=== PATIENT | female | born 1960 | race Caucasian/White ===

== ENCOUNTER → 2017-01-01 | Outpatient (CLI) | payer BC ==
--- NOTE | 2017-01-01 09:14 | BD ---
EXAMINATION TYPE: MG DEXA axial skeleton. DATE OF EXAM: 01/01/2017 8:14 AM COMPARISON: NONE CLINICAL HISTORY: Height: 66.2 IN Weight: 114 LBS FRAX RISK QUESTIONS: Alcohol (3 or more units per day): NO Family History (Parent hip fracture): NO Glucocorticoids (More than 3mos): NO (Ex: prednisone, prednisolone, methylprednisolone, dexamethasone, and hydrocortisone). History of Fracture in Adulthood: NO Secondary Osteoporosis: 1. Type 1 Diabetes: NO 2. Hyperthyroidism: NO 3. Menopause before 45: NO 4. Malnutrition: NO 5. Chronic liver disease: NO Rheumatoid Arthritis: NO Current Tobacco Use: YES RISK FACTORS HISTORY OF: Smoke tobacco: YES Active: YES Postmenopausal woman: AGE 49 MEDICATIONS: Additional Medications: SLEEPING PILL, EXAM MEASUREMENTS: Bone mineral densitometry was performed using the [employer] System. Bone mineral density as measured about the Lumbar spine is: ----- L1-L4(G/cm2): 1.066 T Score Values are as follows: ----- L2: -1.1 ----- L3: -0.3 ----- L4: -1.3 ----- L1-L4: -1.0 Bone mineral density BASELINE Bone mineral density about the R hip (g/cm2): 0.824 Bone mineral density about the L hip (g/cm2): 0.914 T Score values are as follows: -----R Neck: -1.5 -----L Neck: -0.9 -----R Intertrochanter: -1.9 -----L Intertrochanter: -2.1 Bone mineral density BASELINE IMPRESSION: Osteopenia (T Score between -2.5 and -1 as noted by T score values There is slightly increased risk of fracture and the patient may be considered for treatment. Re-Screen 1-2 years. NOTE: T-SCORE=SD OF THE YOUNG ADULT MEAN.
--- NOTE | 2017-01-02 13:49 | MM ---
Reason for exam: screening (asymptomatic). Last mammogram was performed 1 year and 7 months ago. History: Patient is postmenopausal. Physical Findings: A clinical breast exam by your physician is recommended on an annual basis and results should be correlated with mammographic findings. MG Screening Mammo w CAD Bilateral CC and MLO view(s) were taken. Prior study comparison: June 10, 2015, bilateral MG screening mammo w CAD. May 08, 2013, bilateral digital screening mammo w/CAD. The breast tissue is heterogeneously dense. This may lower the sensitivity of mammography. There is no discrete abnormality. No significant changes when compared with prior studies. ASSESSMENT: Negative, BI-RAD 1 RECOMMENDATION: Routine screening mammogram of both breasts in 1 year.
== END | disposition home or self-care (01) ==
LOC: RADMAMWWP 08:11
PROVIDERS: ATTEND Family Medicine
DX: Z12.31 Encounter for screening mammogram for malignant neoplasm of breast (principal); Z78.0 Asymptomatic menopausal state; M85.80 Other specified disorders of bone density and structure, unspecified site
CPT/HCPCS: 77080; G0202

== ENCOUNTER → 2017-02-27 | Outpatient (CLI) | payer BC ==
--- NOTE | 2017-02-27 15:06 | US ---
EXAMINATION TYPE: US thyroid st tissue head/neck DATE OF EXAM: 02/27/2017 9:35 AM COMPARISON: 03/22/2016 CLINICAL HISTORY: E04.1 NON TOXIC SINGLE THYROID NODULE. Follow up exam GLAND SIZE: Right Lobe: 4.7 x 1.5 x 2.1 cm Overall Parenchyma: heterogenous Left Lobe: 4.7 x 1.2 x 1.8 cm Overall Parenchyma: heterogeneous Isthmus Thickness: 0.3 cm NODULES RIGHT: # of nodules measured on right: 0 LEFT: # of nodules measured on left: 1 1. 1.8 X 1.4 x 1.3 cm hypoechoic solid nodule at the lower pole with well-defined margins. This nod ule is wider than tall and shows intranodular vascularity. Prior size: 1.7 x 1.3 x 1.5 cm ISTHMUS: # of nodules measured in the isthmus: 0 Bilateral neck scanned, no evidence of lymphadenopathy. IMPRESSION: 1. Stable left lobe thyroid nodule
== END | disposition home or self-care (01) ==
LOC: RADUSWWP 09:19
PROVIDERS: ATTEND Family Medicine
DX: E04.1 Nontoxic single thyroid nodule (principal)
CPT/HCPCS: 76536

== ENCOUNTER 2018-03-14 06:15 | Day surgery (SDC) | payer BC ==
[2018-03-12 10:35] VITALS: BMI 18.2
--- NOTE | 2018-03-14 05:51 | P.GSHP ---
History of Present Illness H&P Date: 03/14/18 CHIEF COMPLAINT: Colon screen HISTORY OF PRESENT ILLNESS: The patient is a 57-year-old female who presents for colon screen. Lower endoscopy was offered for further evaluation and management. PAST MEDICAL HISTORY: Please see list. PAST SURGICAL HISTORY: Please see list. MEDICATIONS: Please see list. ALLERGIES: Please see list. SOCIAL HISTORY: No illicit drug use FAMILY HISTORY: No reports of Crohn disease or ulcerative colitis. REVIEW OF ORGAN SYSTEMS: CONSTITUTIONAL: No reports of fevers or chills. PHYSICAL EXAM: VITAL SIGNS: Stable GENERAL: Well-developed pleasant in no acute distress. HEENT: No scleral icterus. Extraocular movements grossly intact. Moist buccal mucosa. NECK: Supple without lymphadenopathy. CHEST: Unlabored respirations. Equal bilateral excursions. CARDIOVASCULAR: Regular rate and rhythm. Distal 2+ pulses. ABDOMEN: Soft, nontender, nondistended. MUSCULOSKELETAL: No clubbing, cyanosis, or edema. ASSESSMENT: 1. Colon screen. PLAN: 1. Recommend proceeding with a lower endoscopy Past Medical History Past Medical History: COPD Additional Past Medical History / Comment(s): sore throat lately,occas difficulty swallowing,recent cold symptoms,migraines History of Any Multi-Drug Resistant Organisms: None Reported Past Surgical History: Tubal Ligation Past Anesthesia/Blood Transfusion Reactions: No Reported Reaction Smoking Status: Current every day smoker - Past Family History Mother Family Medical History: No Reported History Medications and Allergies Home Medications Medication Instructions Recorded Confirmed Type Cholecalciferol (Vitamin D3) 2,000 unit PO DAILY 03/12/18 03/12/18 History [Vitamin D3] Ibuprofen 800 mg PO TID PRN 03/12/18 03/12/18 History Nicotine 21Mg/24Hr Patch [Habitrol 1 each TRANSDERM DAILY 03/12/18 03/12/18 History 21Mg/24Hr Patch] Zolpidem Tartrate [Ambien] 10 mg PO HS PRN 03/12/18 03/12/18 History Allergies Allergy/AdvReac Type Severity Reaction Status Date / Time No Known Allergies Allergy Verified 03/12/18 10:26
[2018-03-14] MEDS ORDERED: IV FLUID CONTINUATION 1,000 ML IV ONE (06:36)
[2018-03-14 06:46] VITALS: TEMP 98.1
[2018-03-14] MEDS ORDERED: PROPOFOL 10 MG/ML 20 ML VIAL IV ONE (06:59)
[2018-03-14] MEDS ORDERED: LIDOCAINE 1% INJ 10MG/ML (20 ML MDV) ONE (06:59)
[2018-03-14] MEDS ORDERED: LACTATED RINGERS 1,000 ML IV SCH (07:02)
[2018-03-14] MEDS ORDERED: LIDOCAINE 1% 20 ML VIAL (10MG/ML) FOR IV START INTRADERMA PRN (07:02)
--- NOTE | 2018-03-14 07:24 | P.PCN ---
Date of Procedure: 03/14/18 Description of Procedure: PREOPERATIVE DIAGNOSIS: Colonoscopy screening. High-risk familial history POSTOPERATIVE DIAGNOSIS: Colonoscopy screening. High-risk familial history Sigmoid colon polyp Transverse colon polyp OPERATION: Colonoscopy to the ileocecal valve and appendiceal orifice. Colonoscopy with multiple hot snare biopsies. SURGEON: Mally Acevedo MD. ANESTHESIA: MAC. INDICATIONS: The patient is a 57-year-old female who presents for her first colonoscopy screening. Benefits and risks were described and informed consent was obtained. DESCRIPTION OF PROCEDURE: The patient had undergone Gatorade, MiraLAX and Dulcolax prep. Shee had been brought into the operating room and laid in the left lateral decubitus position. After adequate intravenous sedation, the rectum was examined with 2% lidocaine jelly. No external hemorrhoids were encountered. The rectal tone was within normal limits. No lesions were palpated in the rectal vault. An Olympus colonoscope was advanced until the ileocecal valve and appendiceal orifice were clearly viewed. The prep was fair with visualization of the mucosal folds. The scope was removed with visualization of each mucosal fold. No scattered diverticulosis was encountered. Multiple colonic polyps were found and snare polypectomy. No evidence of focal colitis was found. Retroflexion of the scope demonstrated no grade 1 internal hemorrhoids. The colon was desufflated. The patient had tolerated the procedure well. Withdrawal time was over 6 minutes. FINDINGS: No internal hemorrhoids. No external hemorrhoids. No arteriovenous malformations. Removal of 2 polyps from the proximal, mid transverse colon and descending colon : - Snare polypectomy 15 cm from the anal verge, 5 mm tubulovillous adenoma polyp , sigmoid colon - Snare polypectomy 65 cm from the anal verge, 8 mm flat villous adenoma polyp, transverse colon No focal colitis. RECOMMENDATIONS: Recommend repeat colonoscopy 3 year, 2020 Plan - Discharge Summary New Discharge Prescriptions: No Action Zolpidem Tartrate [Ambien] 10 mg PO HS PRN PRN Reason: sleep Cholecalciferol (Vitamin D3) [Vitamin D3] 2,000 unit PO DAILY Ibuprofen 800 mg PO TID PRN PRN Reason: migraines Nicotine 21Mg/24Hr Patch [Habitrol 21Mg/24Hr Patch] 1 each TRANSDERM DAILY Discharge Medication List Cholecalciferol (Vitamin D3) [Vitamin D3] 2,000 unit PO DAILY 03/12/18 [History] Ibuprofen 800 mg PO TID PRN 03/12/18 [History] Nicotine 21Mg/24Hr Patch [Habitrol 21Mg/24Hr Patch] 1 each TRANSDERM DAILY 03/12 [History] Zolpidem Tartrate [Ambien] 10 mg PO HS PRN 03/12/18 [History]
[2018-03-14 07:25] VITALS: RESP 16
[2018-03-14 07:38] VITALS: PULSE 63
[2018-03-14 07:55] VITALS: BP 133/85
== END 2018-03-14 08:07 | disposition home or self-care (01) ==
LOC: ORWHC2ENDO 06:15
PROVIDERS: ATTEND Surgery Plastic and Reconstructive Surgery
DX: Z12.11 Encounter for screening for malignant neoplasm of colon (principal); D12.3 Benign neoplasm of transverse colon; G43.909 Migraine, unspecified, not intractable, without status migrainosus; K63.5 Polyp of colon; J44.9 Chronic obstructive pulmonary disease, unspecified; F17.210 Nicotine dependence, cigarettes, uncomplicated; Z79.899 Other long term (current) drug therapy
CPT/HCPCS: 88305; 45385; J2001; J2704

== ENCOUNTER → 2018-03-20 | Outpatient (CLI) | payer BC ==
--- NOTE | 2018-03-20 13:34 | MM ---
Reason for exam: screening (asymptomatic). Last mammogram was performed 1 year and 3 months ago. History: Patient is postmenopausal. Physical Findings: A clinical breast exam by your physician is recommended on an annual basis and results should be correlated with mammographic findings. MG Screening Mammo w CAD Bilateral CC and MLO view(s) were taken. Prior study comparison: January 01, 2017, bilateral MG screening mammo w CAD. June 10, 2015, bilateral MG screening mammo w CAD. The breast tissue is heterogeneously dense. This may lower the sensitivity of mammography. No suspicious abnormality. No significant changes when compared with prior studies. ASSESSMENT: Negative, BI-RAD 1 RECOMMENDATION: Routine screening mammogram of both breasts in 1 year.
== END | disposition home or self-care (01) ==
LOC: RADMAMWWP 08:15
PROVIDERS: ATTEND Family Medicine
DX: Z12.31 Encounter for screening mammogram for malignant neoplasm of breast (principal)
CPT/HCPCS: 77067

== ENCOUNTER → 2018-03-26 | Outpatient (CLI) | payer BC ==
--- NOTE | 2018-03-26 08:48 | US ---
EXAMINATION TYPE: US thyroid st tissue head/neck DATE OF EXAM: 03/26/2018 COMPARISON: 02/27/2017 CLINICAL HISTORY: E05.90 Thyrotoxicosis, unspec w/o thyrotoxic. GLAND SIZE: Right Lobe: 4.7 x 1.8 x 2.1 cm Overall Parenchyma: heterogenous Left Lobe: 4.7 x 1.8 x 1.6 cm Overall Parenchyma: heterogeneous Isthmus Thickness: 0.4 cm NODULES RIGHT: # of nodules measured on right: 0 LEFT: # of nodules measured on left: 1 1. 1.7 X 1.0 x 1.6 cm echogenic solid nodule at the lower pole with well-defined margins; periphera l anechoic halo. This nodule is taller than wide and shows intranodular vascularity. Prior size: 1.8 x 1.3 x 1.4 cm ISTHMUS: # of nodules measured in the isthmus: 0 Bilateral neck scanned, no evidence of lymphadenopathy. IMPRESSION: Nonspecific left-sided thyroid nodule as discussed above. The need to biopsy should be made on a clin ical basis.
== END | disposition home or self-care (01) ==
LOC: RADUSWWP 08:12
PROVIDERS: ATTEND Family Medicine
DX: E04.1 Nontoxic single thyroid nodule (principal); E05.90 Thyrotoxicosis, unspecified without thyrotoxic crisis or storm
CPT/HCPCS: 76536

== ENCOUNTER → 2018-04-30 | Outpatient (CLI) | payer BC ==
[2018-04-30 11:37] LABS: HCT 39.4 % (34.0-46.0); MCH 29.2 pg (25.0-35.0); MCV 88.3 fL (80.0-100.0); Platelet Count 229 k/uL (150-450); RBC 4.46 m/uL (3.80-5.40); RDW 12.8 % (11.5-15.5); WBC 6.9 k/uL (3.8-10.6)
[2018-04-30 11:43] LABS: ALT 26 U/L (9-52); AST 23 U/L (14-36); Albumin 3.9 g/dL (3.5-5.0); Alkaline Phosphatase 80 U/L (38-126); Anion Gap 10 mmol/L; Blood Urea Nitrogen 12 mg/dL (7-17); Calcium 9.7 mg/dL (8.4-10.2); Carbon Dioxide 29 mmol/L (22-30); Chloride 103 mmol/L (98-107); Glucose 96 mg/dL (74-99); Sodium 142 mmol/L (137-145); Total Bilirubin 0.4 mg/dL (0.2-1.3); Total Protein 6.3 g/dL (6.3-8.2)
[2018-04-30 12:00] LABS: T4, Free (Free Thyroxine) 1.04 ng/dL (0.78-2.19)
== END | disposition home or self-care (01) ==
LOC: LABWHC1 10:37
PROVIDERS: ATTEND Internal Medicine Endocrinology, Diabetes & Metabolism
DX: E04.1 Nontoxic single thyroid nodule (principal); R94.6 Abnormal results of thyroid function studies
CPT/HCPCS: 36415; 80053; 84439; 84443; 84445; 84480; 85027

== ENCOUNTER → 2018-05-16 | Outpatient (CLI) | payer BC ==
--- NOTE | 2018-05-16 10:06 | US ---
EXAMINATION TYPE: US thyroid st tissue head/neck DATE OF EXAM: 05/16/2018 COMPARISON: Exams dating back to 03/22/2016 CLINICAL HISTORY: E04.1 Nontoxic single thyroid nodule. follow up nodules GLAND SIZE: Right Lobe: 4.6 x 2.0 x 1.7 cm Overall Parenchyma: heterogenous Left Lobe: 4.2 x 1.7 x 1.8 cm Overall Parenchyma: heterogeneous Isthmus Thickness: 0.3 cm NODULES RIGHT: # of nodules measured on right: 1 Multiple hypoechoic lesions seen. Largest measured. 1. 0.7 X 0.7 x 0.6 cm hypoechoic lesion at the mid posterior pole. This nodule is wider than tall and shows intranodular vascularity. Prior size: No prior LEFT: # of nodules measured on left: 1 1. 1.6 X 1.2 x 1.1 cm hypoechoic solid nodule at the lower pole with well-defined margins. This no dule is taller than wide and shows intranodular vascularity. Prior size: 1.7 x 1.0 x 1.6 cm on the exam of 03/26/2018 and 1.7 x 1.3 x 1.5 on the exam of 016. ISTHMUS: # of nodules measured in the isthmus: 0 Bilateral neck scanned, no evidence of lymphadenopathy. IMPRESSION: No interval enlargement of the left thyroid nodule in comparison to exams dating back to 03/22/2016 al though continued surveillance is recommended. New subcentimeter right thyroid nodules also seen.
== END | disposition home or self-care (01) ==
LOC: RADUSWWP 08:50
PROVIDERS: ATTEND Internal Medicine Endocrinology, Diabetes & Metabolism
DX: E04.2 Nontoxic multinodular goiter (principal)
CPT/HCPCS: 76536

== ENCOUNTER 2018-06-18 09:44 | Day surgery (SDC) | payer BC ==
[2018-06-16 13:58] VITALS: BMI 18.8
--- NOTE | 2018-06-18 09:33 | P.GSHP ---
History of Present Illness H&P Date: 06/18/18 CHIEF COMPLAINT: GERD HISTORY OF PRESENT ILLNESS: The patient is a 58-year-old female who presents reports gastroesophageal reflux disease. Upper endoscopy was offered for further evaluation and management. PAST MEDICAL HISTORY: Please see list. PAST SURGICAL HISTORY: Please see list. MEDICATIONS: Please see list. ALLERGIES: Please see list. SOCIAL HISTORY: No illicit drug use FAMILY HISTORY: No reports of Crohn disease or ulcerative colitis. REVIEW OF ORGAN SYSTEMS: CONSTITUTIONAL: No reports of fevers or chills. GI: Denies any blood in stools or constipation. PHYSICAL EXAM: VITAL SIGNS: Stable GENERAL: Well-developed and pleasant in no acute distress. HEENT: No scleral icterus. Extraocular movements grossly intact. Moist buccal mucosa. NECK: Supple without lymphadenopathy. CHEST: Unlabored respirations. Equal bilateral excursions. CARDIOVASCULAR: Regular rate and rhythm. Distal 2+ pulses. ABDOMEN: Soft, nondistended. MUSCULOSKELETAL: No clubbing, cyanosis, or edema. ASSESSMENT: 1. Gastroesophageal reflux disease PLAN: 1. Recommend proceeding with an upper endoscopy Past Medical History Past Medical History: COPD Additional Past Medical History / Comment(s): diff swallowing, History of Any Multi-Drug Resistant Organisms: None Reported Past Surgical History: Tubal Ligation Additional Past Surgical History / Comment(s): colonsocopy Past Anesthesia/Blood Transfusion Reactions: No Reported Reaction Smoking Status: Current every day smoker - Past Family History Mother Family Medical History: No Reported History Sister(s) Family Medical History: Cancer Medications and Allergies Home Medications Medication Instructions Recorded Confirmed Type Ibuprofen 800 mg PO TID PRN 03/12/18 06/16/18 History Zolpidem Tartrate [Ambien] 10 mg PO 1200 PRN 03/12/18 06/16/18 History Fluticasone/Salmeterol [Advair 1 inhalation PO DAILY 06/16/18 06/16/18 History 500-50 Diskus] Methimazole [Tapazole] 2.5 mg PO 1200 06/16/18 06/16/18 History Allergies Allergy/AdvReac Type Severity Reaction Status Date / Time No Known Allergies Allergy Verified 06/16/18 13:48
[~2018-06-18 09:44] MED LIST: LACTATED RINGERS 1,000 ML IV SCH; LIDOCAINE 1% 20 ML VIAL (10MG/ML) FOR IV START INTRADERMA PRN
[2018-06-18 10:21] VITALS: RESP 16; TEMP 98.5
[2018-06-18] MEDS ORDERED: LIDOCAINE 1% INJ 10MG/ML (20 ML MDV) ONE (11:35)
[2018-06-18] MEDS ORDERED: PROPOFOL 10 MG/ML 20 ML VIAL IV ONE (11:35)
[2018-06-18] MEDS ORDERED: IV FLUID CONTINUATION 1,000 ML IV ONE (11:47)
--- NOTE | 2018-06-18 11:51 | P.PCN ---
Date of Procedure: 06/18/18 Description of Procedure: PREOPERATIVE DIAGNOSIS: Gastroesophageal reflux disease. Dysphagia POSTOPERATIVE DIAGNOSIS: Gastroesophageal reflux disease. Dysphagia Diaphragmatic hiatal hernia without obstruction. OPERATION: Esophagogastroduodenoscopy with biopsies along antrum. SURGEON: Mally Acevedo MD ANESTHESIA: MAC. INDICATIONS: The patient is a 58-year-old female who presents with a history of reflux disease. Benefits and risks of the procedure were described. Informed consent was obtained. DESCRIPTION: The patient was brought into the endoscopy suite and laid in the left lateral decubitus position. An Olympus gastroscope was passed along the posterior oropharynx down to the distal esophagus where the squamocolumnar junction was encountered at 39 cm from the incisors. The stomach was entered and no bile reflux was found. Additional findings are listed below. Biopsies with cold forceps were obtained of the antrum. The first through third portion of the duodenum was examined and unremarkable. Retroflexion of the scope confirmed Hill grade 2 lower esophageal valve. The squamocolumnar junction demonstrated early LA grade A erosive esophagitis. The stomach was desufflated. The patient tolerated the procedure well. FINDINGS: Squamocolumnar junction 39 cm from the incisors. Diaphragmatic hiatus at 40 cm. Hiatal hernia 1 cm. Hill grade 2 lower esophageal valve. LA grade A erosive esophagitis. No active duodenitis. Tertiary contractions of the esophagus Hypertensive lower esophageal sphincter RECOMMENDATIONS: Upper endoscopy as needed. Recommend esophageal manometry Plan - Discharge Summary New Discharge Prescriptions: No Action Zolpidem Tartrate [Ambien] 10 mg PO 1200 PRN PRN Reason: sleep Ibuprofen 800 mg PO TID PRN PRN Reason: Pain Methimazole [Tapazole] 2.5 mg PO 1200 Fluticasone/Salmeterol [Advair 500-50 Diskus] 1 inhalation PO DAILY Discharge Medication List Ibuprofen 800 mg PO TID PRN 03/12/18 [History] Zolpidem Tartrate [Ambien] 10 mg PO 1200 PRN 03/12/18 [History] Fluticasone/Salmeterol [Advair 500-50 Diskus] 1 inhalation PO DAILY 06/16/18 [ History] Methimazole [Tapazole] 2.5 mg PO 1200 06/16/18 [History]
[2018-06-18 12:03] VITALS: BP 143/63; PULSE 56
== END 2018-06-18 12:38 | disposition home or self-care (01) ==
LOC: ORWHC2ENDO 09:44
PROVIDERS: ATTEND Surgery Plastic and Reconstructive Surgery
DX: K31.9 Disease of stomach and duodenum, unspecified (principal); K21.0 Gastro-esophageal reflux disease with esophagitis; K44.9 Diaphragmatic hernia without obstruction or gangrene; K22.8 Other specified diseases of esophagus; J44.9 Chronic obstructive pulmonary disease, unspecified; F17.200 Nicotine dependence, unspecified, uncomplicated; Z79.51 Long term (current) use of inhaled steroids; Z79.899 Other long term (current) drug therapy; Z98.51 Tubal ligation status
CPT/HCPCS: 88305; 43239; J2001; J2704

== ENCOUNTER → 2020-06-13 | Outpatient (CLI) | payer BC, OTHER ==
--- NOTE | 2020-06-13 11:57 | BD ---
EXAMINATION TYPE: Axial Bone Density DATE OF EXAM: 06/13/2020 COMPARISON: DEXA bone scan 2017 CLINICAL HISTORY: Postmenopausal female Height: 67 Weight: 134.6 FRAX RISK QUESTIONS: Alcohol (3 or more units per day): no Family History (Parent hip fracture): no Glucocorticoids (More than 3mos): no (Ex: prednisone, prednisolone, methylprednisolone, dexamethasone, and hydrocortisone). History of Fracture in Adulthood: yes Secondary Osteoporosis: 1. Type 1 Diabetes: no 2. Hyperthyroidism: no 3. Menopause before 45: no 4. Malnutrition: no 5. Chronic liver disease: no Rheumatoid Arthritis: no Current Tobacco Use: yes RISK FACTORS HISTORY OF: Family History of Osteoporosis: no Active: no Diet low in dairy products/other sources of calcium: yes Postmenopausal woman: 50 years old MEDICATIONS: Thyroid Medications: thyroid How Lon year Additional History: EXAM MEASUREMENTS: Bone mineral densitometry was performed using the [employer] System. Bone mineral density as measured about the Lumbar spine is: ----- L1-L4(G/cm2): 1.049 T Score Values are as follows: ----- L2: -1.4 ----- L3: -05 ----- L4: -1.8 ----- L1-L4: -1.1 Bone mineral density has: decreased -3.5 % since study of: 12.30.2016 Bone mineral density about the R hip (g/cm2): 0.830 Bone mineral density about the L hip (g/cm2): 0.860 T Score values are as follows: -----R Neck: -1.5 -----L Neck: -1.3 -----R Total: -2.0 -----L Total: -1.9 Bone mineral density has: decreased -3.2 % since study of: 12.30.2016 IMPRESSION: Osteopenia (T Score between -2.5 and -1) remains present. There remains slightly increased risk of fracture and the patient may be considered for treatment. Re-Screen 2-5 years. NOTE: T-SCORE=SD OF THE YOUNG ADULT MEAN.
--- NOTE | 2020-06-13 14:36 | MM ---
Reason for exam: screening (asymptomatic). Last mammogram was performed 2 years and 3 months ago. History: Patient is postmenopausal. Physical Findings: A clinical breast exam by your physician is recommended on an annual basis and results should be correlated with mammographic findings. MG Screening Mammo w CAD Bilateral CC and MLO view(s) were taken. Prior study comparison: March 20, 2018, bilateral MG screening mammo w CAD. January 01, 2017, bilateral MG screening mammo w CAD. The breast tissue is heterogeneously dense. This may lower the sensitivity of mammography. Finding: There is a 5 mm circumscribed round mass in the middle position of the right breast. Asymmetric breast tissue in the left breast is stable. ASSESSMENT: Incomplete: need additional imaging evaluation, BI-RAD 0 RECOMMENDATION: Special view mammogram of the right breast. If lesion persists on supplemental views, image directed ultrasound is recommended. [facility] will attempt to contact patient to return for supplemental views and ultrasound if indicated.
== END | disposition home or self-care (01) ==
LOC: RADMAMWWP 08:18
PROVIDERS: ATTEND Family Medicine
DX: Z12.31 Encounter for screening mammogram for malignant neoplasm of breast (principal); M85.80 Other specified disorders of bone density and structure, unspecified site; Z78.0 Asymptomatic menopausal state
CPT/HCPCS: 77067; 77080

== ENCOUNTER → 2020-06-21 | Outpatient (CLI) | payer BC, OTHER ==
--- NOTE | 2020-06-22 08:00 | MM ---
Reason for exam: additional evaluation requested from abnormal screening. Last mammogram was performed less than 1 month ago. History: Patient is postmenopausal. Physical Findings: Nurse did not find any significant physical abnormalities on exam. MG Work Up Mamm w CAD RT Spot compression CC, spot compression MLO, and LM view(s) were taken of the right breast. Prior study comparison: June 13, 2020, bilateral MG screening mammo w CAD. March 20, 2018, bilateral MG screening mammo w CAD. The breast tissue is heterogeneously dense. This may lower the sensitivity of mammography. Finding: There is a 5 mm obscured round mass located 5 cm from the nipple in the lower outer quadrant, middle position of the right breast does not go completely away on additional images. These results were verbally communicated with the patient and result sheet given to the patient on 06/21/20. ASSESSMENT: Incomplete: need additional imaging evaluation, BI-RAD 0 RECOMMENDATION: Ultrasound of the right breast.
--- NOTE | 2020-06-22 08:02 | USB ---
Reason for exam: additional evaluation requested from abnormal screening. History: Patient is postmenopausal. US Breast Workup Limited RT Technologist: Cheyenne Solorio Right limited breast ultrasound including focal area of concern, retroareolar and axilla demonstrates a 0.6 x 0.7 x 0.4cm oval, cystic cluster at 7 o'clock, increased through transmission, favor septated debris filled cyst. These results were verbally communicated with the patient and result sheet given to the patient on 06/21/20. ASSESSMENT: Probably benign, BI-RAD 3 RECOMMENDATION: Follow-up diagnostic mammogram and ultrasound of the right breast in 6 months.
== END | disposition home or self-care (01) ==
LOC: RADMAMWWP 14:46
PROVIDERS: ATTEND Family Medicine
DX: R92.8 Other abnormal and inconclusive findings on diagnostic imaging of breast (principal)
CPT/HCPCS: 77065

== ENCOUNTER → 2020-12-08 | Outpatient (CLI) | payer OTHER ==
[2020-12-08 19:12] LABS: Basophils # (A) 0.02 X 10*3/uL (0.00-0.10); Basophils % (A) 0.3 %; Eosinophils # (A) 0.15 X 10*3/uL (0.04-0.35); Eosinophils % (A) 2.4 %; HCT 43.2 % (37.2-46.3); HGB 13.9 g/dL (12.0-15.0); Lymphocytes # (A) 1.71 X 10*3/uL (0.90-5.00); Lymphocytes % (A) 27.3 %; MCH 29.4 pg (27.0-32.0); MCHC 32.2 g/dL (32.0-37.0); MCV 91.3 fL (80.0-97.0); Mean Platelet Volume 10.5 fL (9.5-12.2); Monocytes # (A) 0.75 X 10*3/uL (0.20-1.00); Neutrophils # (A) 3.62 X 10*3/uL (1.80-7.70); Neutrophils % (A) 57.8 %; Platelet Count 253 X 10*3/uL (140-440); RBC 4.73 X 10*6/uL (4.10-5.20); RDW 12.1 % (11.5-14.5); WBC 6.26 X 10*3/uL (4.50-10.00)
[2020-12-08 22:58] LABS: African American GFR (CKD) 113.2 (60.0-200.0); Albumin 4.5 g/dL (3.80-4.90); Albumin/Globulin Ratio 2.37 (1.60-3.17); Calcium 9.2 mg/dL (8.7-10.3); Chol/HDL Ratio 3.18; Globulin 1.9 g/dL (1.6-3.3); LDL Cholesterol,Calculated 127.6 mg/dL (0.0-131.0); Non-African American GFR(CKD) 97.7 (60.0-200.0); Potassium 4.8 mmol/L (3.5-5.5); Total Bilirubin 0.5 mg/dL (0.3-1.2); Total Protein 6.4 g/dL (6.2-8.2); VLDL Calculation 16.4 mg/dL (5.00-40.00)
== END | disposition home or self-care (01) ==
LOC: LABWHC1 12:21
PROVIDERS: ATTEND Family Medicine
DX: E78.5 Hyperlipidemia, unspecified (principal); E05.90 Thyrotoxicosis, unspecified without thyrotoxic crisis or storm
CPT/HCPCS: 36415; 80053; 80061; 84443; 84481; 85025

== ENCOUNTER → 2020-12-19 | Outpatient (CLI) | payer OTHER ==
--- NOTE | 2020-12-20 14:18 | MM ---
Reason for exam: follow-up at short interval from prior study. Last mammogram was performed 6 months ago. History: Patient is postmenopausal. Physical Findings: Nurse did not find any significant physical abnormalities on exam. MG Diagnostic Mammo RT w CAD CC and MLO view(s) were taken of the right breast. Prior study comparison: June 13, 2020, bilateral MG screening mammo w CAD. March 20, 2018, bilateral MG screening mammo w CAD. The breast tissue is heterogeneously dense. This may lower the sensitivity of mammography. 6mm nodule right breast 8 o'clock unchanged for 6 months. Continued follow up recommended. These results were verbally communicated with the patient and result sheet given to the patient on 12/19/20. ASSESSMENT: Probably benign, BI-RAD 3 RECOMMENDATION: Follow-up diagnostic mammogram of both breasts in 6 months. Back on schedule for June 2021.
== END | disposition home or self-care (01) ==
LOC: RADMAMWWP 10:12
PROVIDERS: ATTEND Family Medicine
DX: N60.01 Solitary cyst of right breast (principal)
CPT/HCPCS: 77065

== ENCOUNTER → 2021-01-04 | Outpatient (CLI) | payer OTHER ==
--- NOTE | 2021-01-04 16:15 | XR ---
Left shoulder HISTORY: Pain for 1 month 3 views the left shoulder, no comparisons bone mineralization, joint spaces are maintained. Acromion is downsloping. Left lung apex as visualiz ed is normal. In one of the 3 views, there is questionable superior displacement of the distal clavic le in relation to the acromion. IMPRESSION: Correlate for acromioclavicular separation.
== END ==
LOC: RADXRMAIN 13:31
PROVIDERS: ATTEND Family Medicine
DX: M25.512 Pain in left shoulder (principal)

== ENCOUNTER → 2021-04-06 | Outpatient (CLI) | payer OTHER ==
--- NOTE | 2021-04-06 12:56 | XR ---
EXAMINATION TYPE: XR chest 2V DATE OF EXAM: 04/06/2021 COMPARISON: NONE TECHNIQUE: PA and lateral views submitted. HISTORY: Cough FINDINGS: The lungs are clear and there is no pneumothorax, pleural effusion, or focal pneumonia. Hyperinflati on suggests COPD. Biapical pleural thickening. Heart size normal. No overt failure. There is mild int erlobular septal thickening correlate for mild chronic interstitial lung disease. Hypertrophic and de generative change of the spine. IMPRESSION: 1. COPD. Correlate for mild chronic interstitial lung disease.
== END | disposition home or self-care (01) ==
LOC: RADXRMAIN 12:29
PROVIDERS: ATTEND Nurse Practitioner
DX: J44.9 Chronic obstructive pulmonary disease, unspecified (principal)
CPT/HCPCS: 71046

== ENCOUNTER → 2021-06-26 | Outpatient (CLI) | payer OTHER ==
--- NOTE | 2021-06-26 11:04 | MM ---
Reason for exam: follow-up at short interval from prior study. Last mammogram was performed 6 months ago. History: Patient is postmenopausal. Physical Findings: Nurse did not find any significant physical abnormalities on exam. MG Diagnostic Mammo w CAD SUMA Bilateral CC and MLO view(s) were taken. Prior study comparison: December 19, 2020, right breast MG diagnostic mammo RT w CAD. June 21, 2020, right breast MG work up mamm w CAD RT. The breast tissue is heterogeneously dense. This may lower the sensitivity of mammography. Stable benign calcifications. 6mm nodule right 8 o'clock, stable, ultrasound is recommended. These results were verbally communicated with the patient and result sheet given to the patient on 06/26/21. ASSESSMENT: Incomplete: need additional imaging evaluation, BI-RAD 0 RECOMMENDATION: Ultrasound of the right breast.
--- NOTE | 2021-06-26 11:05 | USB ---
Reason for exam: additional evaluation requested from abnormal screening. History: Patient is postmenopausal. US Breast Limited RT Technologist: Cheyenne Solorio Right limited breast ultrasound including focal area of concern, retroareolar and axilla demonstrates a 0.7 x 0.8 x 0.4cm cystic, complex lesion at 7 o'clock. These results were verbally communicated with the patient and result sheet given to the patient on 06/26/21. ASSESSMENT: Probably benign, BI-RAD 3 RECOMMENDATION: Ultrasound of the right breast in 6 months.
== END | disposition home or self-care (01) ==
LOC: RADMAMWWP 09:47
PROVIDERS: ATTEND Family Medicine
DX: R92.8 Other abnormal and inconclusive findings on diagnostic imaging of breast (principal)
CPT/HCPCS: 77066

== ENCOUNTER → 2021-07-13 | Outpatient (CLI) | payer OTHER ==
--- NOTE | 2021-07-13 15:42 | XR ---
EXAMINATION TYPE: XR KUB DATE OF EXAM: 07/13/2021 COMPARISON: NONE HISTORY: Pain TECHNIQUE: One view abdominal series FINDINGS: The osseous structures are intact. The bowel gas pattern is nonspecific. Is a 3 mm left hemipelvic c alcification. Arthropathy of the hips.. IMPRESSION: 1. 3 mm left hemipelvic calcifications suspicious for distal ureteral calculus.
== END | disposition home or self-care (01) ==
LOC: RADXRMAIN 15:02
PROVIDERS: ATTEND Nurse Practitioner
DX: R93.5 Abnormal findings on diagnostic imaging of other abdominal regions, including retroperitoneum (principal)
CPT/HCPCS: 74018

== ENCOUNTER → 2021-07-18 | Outpatient (CLI) | payer OTHER ==
--- NOTE | 2021-07-18 18:11 | US ---
EXAMINATION TYPE: US thyroid st tissue head/neck DATE OF EXAM: 07/18/2021 COMPARISON: 05/16/2018 CLINICAL HISTORY: 61-year-old female E04.1 Nontoxic single thyroid nodule. Patient has hard time swal lowing GLAND SIZE: Right Lobe: 5.4x3.2x2.9 cm Overall Parenchyma: heterogeneous Left Lobe: 5.1x2.5x2.3 cm Overall Parenchyma: heterogeneous Isthmus Thickness: 0.8 cm There is diffuse glandular heterogeneity and hyperemia. NODULES- Multiple subcentimeter nodules, the largest are measured RIGHT: # of nodules measured on right: 2 1. 1.2 X 0.9 x 1.0 cm, mid mid, solid or almost completely solid, TR3 hyperechoic nodule, which is wider than tall, with smooth margins, without echogenic foci. Prior size: 0.7 x 0.7 x 0.6 cm Previously mostly cystic 2. 1.2 X 1.0 x 1.2 cm, mid lateral, solid or almost completely solid, hyperechoic TR3 nodule, which is wider than tall, with smooth margins, without echogenic foci. Prior size: Not previously measured LEFT: # of nodules measured on left: 3 1. 1.2 X 0.7 x 1.0 cm, mid posterior, solid or almost completely solid, TR 3 hyperechoic nodule, wh ich is wider than tall, with smooth margins, without echogenic foci. Prior size: Not previously measured, ? Parathyroid 2. 0.6 X 0.6 x 0.6 cm, mid mid, solid or almost completely solid, TR 3 hyperechoic nodule, which i s wider than tall, with smooth margins, without echogenic foci. Prior size: Not previously measured 3. 1.4 X 1.1 x 1.1 cm, lower medial, solid or almost completely solid, TR 4 hypoechoic nodule, whic h is wider than tall, with smooth margins, without echogenic foci. Calcified rim Prior size: 1.6 x 1.2 x 1.1 cm ISTHMUS: # of nodules measured in the isthmus: 1 1. 0.7 X 0.4 x 0.7 cm solid or almost completely solid, TR4 hypoechoic nodule, which is wider than tall, with smooth margins, without echogenic foci. Prior size: Not previously measured Bilateral neck scanned. Thickened, lymph nodes are seen laterally in both sides of the neck. Right = 2.0x2.5x1.1cm Left = 2.0x1.2x0.9cm IMPRESSION: 1. Findings suggest multinodular goiter. Numerous subcentimeter nodules are present. The largest are reported above and are TR3 or TR4 nodules. 2. One of the solid TR 3 nodules in the right mid pole currently measures 12 mm versus 7 mm, previous ly, and can continue to be followed. 3. A 1.2 cm TR 3 nodule posteriorly on the left could represent a parathyroid gland. 4. Multiple additional TR4 nodules should continue to be followed. 5. A couple thickened and mildly enlarged lymph nodes on either side of the neck. Clinical follow-up is recommended. They can also be reassessed at follow-up ultrasound. If any enlarging lymph nodes are detected, consider contrast-enhanced CT of the neck.
== END | disposition home or self-care (01) ==
LOC: RADUSWWP 10:55
PROVIDERS: ATTEND Family Medicine
DX: E04.2 Nontoxic multinodular goiter (principal)
CPT/HCPCS: 76536

== ENCOUNTER → 2022-03-12 | Outpatient (CLI) | payer OTHER ==
--- NOTE | 2022-03-12 10:49 | USB ---
Reason for exam: clinical finding. History: Patient is postmenopausal. Indicated problem(s): pain in both breasts. Physical Findings: A clinical breast exam by your physician is recommended on an annual basis and results should be correlated with mammographic findings. US Breast BILAT Right complete breast ultrasound includes all four quadrants, the retroareolar region and axilla. Finding demonstrates a 0.8 x 0.5 x 0.8cm oval, cystic lesion, complex cyst at 7 o'clock, 4cm from nipple, stable from 06/26/21. Left complete breast ultrasound includes all four quadrants, the retroareolar region and axilla. Finding demonstrates no cystic or solid lesion seen. Results were given to the patient verbally at the time of the exam. ASSESSMENT: Benign, BI-RAD 2 RECOMMENDATION: Routine screening mammogram of both breasts in 3 months. Back on schedule for June 2022. Manage patient on a clinical basis.
== END | disposition home or self-care (01) ==
LOC: RADUSWWP 10:18
PROVIDERS: ATTEND Family Medicine
DX: N60.01 Solitary cyst of right breast (principal); Z78.0 Asymptomatic menopausal state

== ENCOUNTER → 2022-05-24 | Outpatient (CLI) | payer OTHER ==
[2022-05-24 23:45] LABS: Basophils # (A) 0.02 X 10*3/uL (0.00-0.10); Basophils % (A) 0.3 %; Eosinophils # (A) 0.52 X 10*3/uL (0.04-0.35); Eosinophils % (A) 7.6 %; HCT 41.9 % (37.2-46.3); HGB 13.5 g/dL (12.0-15.0); Immature Grans, Automated 0.3 %; Lymphocytes # (A) 2.03 X 10*3/uL (0.90-5.00); Lymphocytes % (A) 29.9 %; MCH 29.3 pg (27.0-32.0); MCHC 32.2 g/dL (32.0-37.0); MCV 90.9 fL (80.0-97.0); Mean Platelet Volume 10.2 fL (9.5-12.2); Monocytes # (A) 0.69 X 10*3/uL (0.20-1.00); Monocytes % (A) 10.1 %; NRBC Per 100 WBC 0 /100 WBCS (0.0-0.0); Neutrophils # (A) 3.52 X 10*3/uL (1.80-7.70); Neutrophils % (A) 51.8 %; Platelet Count 246 X 10*3/uL (140-440); RBC 4.61 X 10*6/uL (4.10-5.20); RDW 12.1 % (11.5-14.5)
[2022-05-25 00:43] LABS: ALT 16 U/L (8-44); AST 18 U/L (13-35); African American GFR (CKD) 107.7 (60.0-200.0); Albumin 4.1 g/dL (3.8-4.9); Albumin/Globulin Ratio 1.92 (1.60-3.17); Alkaline Phosphatase 128 U/L (41-126); BUN/Creat Ratio 13.28 Ratio (12.00-20.00); Blood Urea Nitrogen 9.1 mg/dL (9.0-27.0); Calcium 9.4 mg/dL (8.7-10.3); Carbon Dioxide 28.1 mmol/L (20.0-27.5); Chloride 106 mmol/L (96-109); Globulin 2.1 g/dL (1.6-3.3); Glucose 86 mg/dL (70-110); LDL Cholesterol,Calculated 61.6 mg/dL (0.0-131.0); Sodium 142 mmol/L (135-145); Total Protein 6.2 g/dL (6.2-8.2)
--- NOTE | 2022-05-25 07:24 | US ---
EXAMINATION TYPE: US thyroid st tissue head/neck DATE OF EXAM: 05/24/2022 COMPARISON: CLINICAL HISTORY: E04.9 GOITER. No hx biopsy per patient. On thyroid meds. GLAND SIZE: Right Lobe: 5.9 x 2.8 x 2.6 cm Overall Parenchyma: heterogenous Left Lobe: 5.4 x 2.3 x 2.5 cm Overall Parenchyma: heterogeneous Isthmus Thickness: 0.9 cm NODULES- Multiple nodules visualized bilaterally RIGHT: # of nodules measured on right: 2 1. 1.2 x 1.3 x 1.0 cm, mid mid, solid or almost completely solid, hyperechoic nodule, which is wider than tall, with smooth margins, without echogenic foci. Prior size: 1.2 x 1.0 x 0.9 cm 2. 1.3 X 1.1 x 0.9 cm, mid lateral, solid or almost completely solid, hyperechoic nodule, which is wider than tall, with smooth margins, without echogenic foci. Prior size: 1.2 x 1.2 x 1.0 cm LEFT: # of nodules measured on left: 3 1. 1.1 X 1.0 x 0.8 cm, mid mid posterior, solid or almost completely solid, hyperechoic nodule, whi ch is wider than tall, with smooth margins, without echogenic foci. Prior size: 1.2 x 1.0 x 0.7 cm 2. 0.6 X 0.6 x 0.5 cm, mid mid, solid or almost completely solid, hyperechoic nodule, which is wid er than tall, with smooth margins, without echogenic foci. Prior size: 0.6 x 0.6 x 0.6 cm 3. 1.2 X 1.0 x 1.1 cm, lower mid, solid or almost completely solid, hyperechoic nodule, which is ta ller than wide, with smooth margins, with echogenic foci. Prior size: 1.4 x 1.1 x 1.1 cm ISTHMUS: # of nodules measured in the isthmus: 1 1. 0.7 X 0.8 x 0.6 cm solid or almost completely solid, hypoechoic nodule, which is wider than tall , with smooth margins, without echogenic foci. Prior size: 0.7 x 0.7 x 0.4 cm Bilateral neck scanned, no evidence of lymphadenopathy. Bilateral thyroid lobes appear hypervascular. IMPRESSION: 1. Glandular heterogeneity and enlargement noted. 2. Nonspecific thyroid nodules as outlined above.
== END | disposition home or self-care (01) ==
LOC: RADUSWWP 15:13
PROVIDERS: ATTEND Family Medicine
DX: E04.2 Nontoxic multinodular goiter (principal)
CPT/HCPCS: 76536; 80053; 80061; 83036; 84439; 84443; 84481; 85025

== ENCOUNTER 2022-06-20 10:38 | Day surgery (SDC) | payer OTHER ==
--- NOTE | 2022-06-20 09:57 | P.GSHP ---
History of Present Illness H&P Date: 06/20/22 CHIEF COMPLAINT: Colon screen HISTORY OF PRESENT ILLNESS: The patient is a 62-year-old female who presents for colon screen. Lower endoscopy was offered for further evaluation and management. PAST MEDICAL HISTORY: Please see list. PAST SURGICAL HISTORY: Please see list. MEDICATIONS: Please see list. ALLERGIES: Please see list. SOCIAL HISTORY: No illicit drug use FAMILY HISTORY: No reports of Crohn disease or ulcerative colitis. REVIEW OF ORGAN SYSTEMS: CONSTITUTIONAL: No reports of fevers or chills. PHYSICAL EXAM: VITAL SIGNS: Stable GENERAL: Well-developed pleasant in no acute distress. HEENT: No scleral icterus. Extraocular movements grossly intact. Moist buccal mucosa. NECK: Supple without lymphadenopathy. CHEST: Unlabored respirations. Equal bilateral excursions. CARDIOVASCULAR: Regular rate and rhythm. Distal 2+ pulses. ABDOMEN: Soft, nontender, nondistended. MUSCULOSKELETAL: No clubbing, cyanosis, or edema. ASSESSMENT: 1. Colon screen. PLAN: 1. Recommend proceeding with a lower endoscopy Past Medical History Past Medical History: Cancer, COPD, Hyperlipidemia, Thyroid Disorder Additional Past Medical History / Comment(s): hx. colon polyps, occas difficulty swallowing w/pills, migraines, hx. skin cancer, chronic cough from smoking per pt. History of Any Multi-Drug Resistant Organisms: None Reported Past Surgical History: Tubal Ligation Additional Past Surgical History / Comment(s): colonoscopy Past Anesthesia/Blood Transfusion Reactions: No Reported Reaction Smoking Status: Current every day smoker - Past Family History Mother Family Medical History: No Reported History Sister(s) Family Medical History: Cancer Medications and Allergies Home Medications Medication Instructions Recorded Confirmed Type Ibuprofen 800 mg PO TID PRN 03/12/18 06/19/22 History Zolpidem Tartrate [Ambien] 10 mg PO HS 03/12/18 06/19/22 History methIMAzole [Tapazole] 5 mg PO DAILY 06/16/18 06/19/22 History Albuterol Inhaler [Ventolin Hfa 1 - 2 puff INHALATION BID 06/19/22 06/19/22 History Inhaler] Atorvastatin [Lipitor] 20 mg PO DAILY 06/19/22 06/19/22 History Allergies Allergy/AdvReac Type Severity Reaction Status Date / Time No Known Allergies Allergy Verified 06/19/22 13:44
[~2022-06-20 10:38] MED LIST changes: +LIDOCAINE 1% (10MG/ML) FOR IV START INTRADERMA PRN; -LIDOCAINE 1% 20 ML VIAL (10MG/ML) FOR IV START INTRADERMA PRN
[2022-06-20 11:32] VITALS: TEMP 98.2
[2022-06-20] MEDS ORDERED: LIDOCAINE 2% INJ 20 MG/ML (2 ML VIAL) ONE (12:29)
[2022-06-20] MEDS ORDERED: PROPOFOL 10 MG/ML 20 ML VIAL IV ONE (12:29)
--- NOTE | 2022-06-20 13:15 | P.PCN ---
Date of Procedure: 06/20/22 Description of Procedure: PREOPERATIVE DIAGNOSIS: Personal history of colon polyps POSTOPERATIVE DIAGNOSIS: Personal history of colon polyps Tubular adenoma cecum Tubular adenoma ascending colon Tubular adenoma descending Tubular adenoma rectal Tubular adenoma transverse colon Sigmoid diverticulosis Internal hemorrhoids, grade 2 OPERATION: Colonoscopy to the ileocecal valve and appendiceal orifice, cecum Colonoscopy with hot snare polypectomy Colonoscopy with cold forceps biopsy SURGEON: Mally Acevedo MD. ANESTHESIA: MAC. INDICATIONS: The patient is an 62-year-old male who presents personal history of colon polyps. Last colonoscopy 5 years. Benefits and risks were described and [facility]. DESCRIPTION OF PROCEDURE: The patient had undergone Sutab prep. The patient had been brought into the operating room and laid in the left lateral decubitus position. After adequate intravenous sedation, the rectum was examined with 2% lidocaine jelly. The prostate was unremarkable. External hemorrhoids were encountered. The rectal tone was within normal limits. No lesions were palpated in the rectal vault. An Olympus colonoscope was advanced until the cecum, ileocecal valve and appendiceal orifice were clearly viewed. The prep was excellent. Sigmoid diverticulosis was encountered. Colonic polyps were found and removed. No evidence of focal colitis was found. Retroflexion of the scope demonstrated grade 2 internal hemorrhoids without active bleeding or inflammation. The colon was desufflated. The patient had tolerated the procedure well. Withdrawal time was over 6 minutes. FINDINGS: Aronchick preparation quality scale 1 (1-5) Internal hemorrhoids, grade 2 External hemorrhoids, grade 2. No arteriovenous malformations. Sigmoid diverticulosis Removal of 6 polyps: - Snare polypectomy appendiceal orifice/cecum, 5 mm tubulovillous adenoma polyp. - Snare polypectomy ascending colon 3, 6 to 8 mm flat villous adenoma polyp. - Snare polypectomy descending colon, 7 mm flat villous adenoma polyp. - Cold forceps biopsy at 10 cm from the anal verge, 4 mm polyp, rectum No focal colitis. RECOMMENDATIONS: Given severity of tubular adenomas, recommend repeat colonoscopy in 3 years, 2024 Plan - Discharge Summary Discharge Rx Participant: No New Discharge Prescriptions: No Action Zolpidem Tartrate [Ambien] 10 mg PO HS Ibuprofen 800 mg PO TID PRN PRN Reason: Pain methIMAzole [Tapazole] 5 mg PO DAILY Atorvastatin [Lipitor] 20 mg PO DAILY Albuterol Inhaler [Ventolin Hfa Inhaler] 1 - 2 puff INHALATION BID Discharge Medication List Ibuprofen 800 mg PO TID PRN 03/12/18 [History] Zolpidem Tartrate [Ambien] 10 mg PO HS 03/12/18 [History] methIMAzole [Tapazole] 5 mg PO DAILY 06/16/18 [History] Albuterol Inhaler [Ventolin Hfa Inhaler] 1 - 2 puff INHALATION BID 06/19/22 [History] Atorvastatin [Lipitor] 20 mg PO DAILY 06/19/22 [History]
[2022-06-20 13:35] VITALS: BP 148/72; PULSE 58; RESP 16
== END 2022-06-20 14:15 | disposition home or self-care (01) ==
LOC: ORWHC2ENDO 10:38
PROVIDERS: ATTEND Surgery Plastic and Reconstructive Surgery
DX: Z12.11 Encounter for screening for malignant neoplasm of colon (principal); Z86.010 Personal history of colon polyps; D12.2 Benign neoplasm of ascending colon; D12.0 Benign neoplasm of cecum; D12.4 Benign neoplasm of descending colon; K63.5 Polyp of colon; K57.30 Diverticulosis of large intestine without perforation or abscess without bleeding; K64.1 Second degree hemorrhoids; J44.9 Chronic obstructive pulmonary disease, unspecified; E78.5 Hyperlipidemia, unspecified; E07.9 Disorder of thyroid, unspecified; Z85.828 Personal history of other malignant neoplasm of skin; R05.3 Chronic cough; F17.200 Nicotine dependence, unspecified, uncomplicated; Z97.2 Presence of dental prosthetic device (complete) (partial); Z80.9 Family history of malignant neoplasm, unspecified; Z79.899 Other long term (current) drug therapy
CPT/HCPCS: 88305; 45380; 45385; J2704; J2001

== ENCOUNTER → 2022-07-03 | Outpatient (CLI) | payer OTHER ==
--- NOTE | 2022-07-03 13:51 | USB ---
Reason for Exam: Additional evaluation requested from abnormal screening. Patient History: Menarche at age 14. First Full-Term at age 15. Hysterectomy at age 28. Postmenopausal. Risk Values: Jesusita 5 year model risk: 1.1%. NCI Lifetime model risk: 4.3%. Technique: Method: Targeted. Prior Study Comparison: 12/19/2020 Right Diagnostic Mammogram, [facility]. 06/26/2021 Bilateral Diagnostic Mammogram, [facility]. 06/28/2022 Bilateral MG 3D screening mammo w/cad, [facility]. Findings: The lower inner quadrant of the left breast, the axilla of the left breast and the retroareolar of the left breast were scanned. Electronically signed and approved by: Christopher Flores D.O.
== END | disposition home or self-care (01) ==
LOC: RADUSWWP 12:40
PROVIDERS: ATTEND Family Medicine
DX: R92.8 Other abnormal and inconclusive findings on diagnostic imaging of breast (principal); Z78.0 Asymptomatic menopausal state

== ENCOUNTER → 2022-07-05 | Outpatient (CLI) | payer OTHER ==
--- NOTE | 2022-07-05 11:15 | USB ---
Reason for Exam: Additional evaluation requested from abnormal screening. Patient History: Menarche at age 14. First Full-Term at age 15. Hysterectomy at age 28. Postmenopausal. Risk Values: Jesusita 5 year model risk: 1.1%. NCI Lifetime model risk: 4.3%. Prior Study Comparison: 12/19/2020 Right Diagnostic Mammogram, [facility]. 06/26/2021 Bilateral Diagnostic Mammogram, [facility]. 06/28/2022 Bilateral MG 3D screening mammo w/cad, [facility]. Findings: The upper outer quadrant of the right breast, the axilla of the right breast and the retroareolar of the right breast were scanned. An oval slightly lobulated thin-walled cyst measures 8 x 6 x 7 mm current study with some internal septa has been present on several mammograms without significant interval change in size when accounting for technical differences and felt to correspond to mammogram abnormality. Overall Assessment: Benign, BI-RAD 2 Management: Screening Mammogram of both breasts in 1 year. Return to routine follow-up. Patient told the findings and recommendations at time of dictation. Electronically signed and approved by: Madhu Conrad M.D.
== END | disposition home or self-care (01) ==
LOC: RADUSWWP 10:30
PROVIDERS: ATTEND Family Medicine
DX: Z53.9 Procedure and treatment not carried out, unspecified reason (principal)

== ENCOUNTER → 2022-08-23 | Outpatient (CLI) | payer OTHER ==
[2022-08-23 18:36] LABS: HCT 40.2 % (37.2-46.3); HGB 13.1 g/dL (12.0-15.0); MCH 29.2 pg (27.0-32.0); MCHC 32.6 g/dL (32.0-37.0); MCV 89.7 fL (80.0-97.0); NRBC Per 100 WBC 0 /100 WBCS (0.0-0.0); Platelet Count 249 X 10*3/uL (140-440); RBC 4.48 X 10*6/uL (4.10-5.20); RDW 11.9 % (11.5-14.5); WBC 8.18 X 10*3/uL (4.50-10.00)
[2022-08-23 19:24] LABS: Albumin 3.8 g/dL (3.8-4.9); Albumin/Globulin Ratio 2.01 (1.60-3.17); Anion Gap 9.7 mmol/L (10.00-18.00); Calcium 9.2 mg/dL (8.7-10.3); Carbon Dioxide 29.1 mmol/L (20.0-27.5); Globulin 1.9 g/dL (1.6-3.3); Non-African American GFR(CKD) 97.5 (60.0-200.0); Potassium 4.4 mmol/L (3.5-5.5); T4, Free (Free Thyroxine) 0.58 ng/dL (0.800-1.800); Total Bilirubin 0.4 mg/dL (0.30-1.20); Total Protein 5.6 g/dL (6.2-8.2)
== END | disposition home or self-care (01) ==
LOC: LABWHC1 11:39
PROVIDERS: ATTEND Internal Medicine
DX: E05.90 Thyrotoxicosis, unspecified without thyrotoxic crisis or storm (principal)
CPT/HCPCS: 36415; 80053; 84439; 84443; 84445; 84481; 85027

== ENCOUNTER → 2022-11-07 | Outpatient (CLI) | payer OTHER ==
--- NOTE | 2022-11-07 14:17 | XR ---
EXAMINATION TYPE: XR chest 2V DATE OF EXAM: 11/07/2022 COMPARISON: NONE TECHNIQUE: PA and lateral views submitted. HISTORY: COPD FINDINGS: The lungs are clear and there is no pneumothorax, pleural effusion, or focal pneumonia. Hyperexpans ion of the lungs. Hypertrophic and degenerative change of the spine. Atherosclerotic change aorta. He art size normal. No overt failure. IMPRESSION: 1. No acute process. Orally for COPD.
== END | disposition home or self-care (01) ==
LOC: RADXRMAIN 13:38
PROVIDERS: ATTEND Family Medicine
DX: J44.1 Chronic obstructive pulmonary disease with (acute) exacerbation (principal)
CPT/HCPCS: 71046

== ENCOUNTER → 2023-01-16 | Outpatient (CLI) | payer OTHER ==
--- NOTE | 2023-01-17 07:17 | XR ---
EXAMINATION TYPE: XR chest 2V DATE OF EXAM: 01/16/2023 5:43 PM COMPARISON: Chest radiographs from 11/07/2022 TECHNIQUE: XR chest 2V Frontal and lateral views of the chest. CLINICAL INDICATION:Female, 62 years old with history of J44.1 LUNG; FINDINGS: Lungs/Pleura: There is flattening of the diaphragm with increased lucency of the lungs. No evidence o f pneumothorax, pleural effusion or focal consolidation. Pulmonary vascularity: Unremarkable. Heart/mediastinum: Cardiomediastinal silhouette is unremarkable. Musculoskeletal: No acute osseous pathology. IMPRESSION: 1. No acute cardiopulmonary disease process. 2. COPD changes.
== END | disposition home or self-care (01) ==
LOC: RADXRMAIN 15:32
PROVIDERS: ATTEND Family Medicine
DX: J44.1 Chronic obstructive pulmonary disease with (acute) exacerbation (principal)
CPT/HCPCS: 71046

== ENCOUNTER → 2023-03-13 | Outpatient (CLI) | payer OTHER ==
[2023-03-13 23:14] LABS: T4, Free (Free Thyroxine) 0.92 ng/dL (0.800-1.800)
== END | disposition home or self-care (01) ==
LOC: LABWHC1 12:41
PROVIDERS: ATTEND Internal Medicine
DX: E05.90 Thyrotoxicosis, unspecified without thyrotoxic crisis or storm (principal)
CPT/HCPCS: 36415; 84439; 84443; 84450; 84460; 84481

== ENCOUNTER → 2023-06-26 | Outpatient (CLI) | payer MEDICARE, OTHER ==
--- NOTE | 2023-06-27 13:40 | CTL ---
EXAMINATION TYPE: CT Low Dose Lung DATE OF EXAM ORDERED: 06/26/2023 HISTORY: Nicotine dependence. Lung cancer screening CT DLP: [address] CTDI: 1.53 mGy Automated exposure control for dose reduction was used. SCREENING VISIT: Initial COMPARISON: None TECHNIQUE: Low dose computed tomography scan was performed through the chest at 1 mm thick sections a nd reconstructed images in the coronal plane at [address] DIAGNOSTIC QUALITY: Limited, but interpretable FINDINGS: LUNG NODULES: Present, detailed below: 1. There is a 1.5 cm irregular density in the posterior medial right apex. Some pleural thickening is present in the posterior left apex. LUNGS: COPD: Severity: Moderate Fibrosis: Severity: None Lymph nodes: None Other findings: None RIGHT PLEURAL SPACE: Effusion: None Calcification: None Thickening: None Pneumothorax: None LEFT PLEURAL SPACE: Effusion: None Calcification: None Thickening: None Pneumothorax: None HEART: Heart Size: Normal Coronary calcification: Mild Pericardial effusion: None OTHER FINDINGS: Upper abdomen: Normal Bony thorax: Normal Supraclavicular region: Normal Other: Ascending thoracic aorta at the level the main pulmonary artery measures 3.4 cm. The main pul monary artery at the bifurcation measures 2.3 cm. IMPRESSION: 1. Bilateral apical thickening. Follow-up is recommended in [address] CHEST RECOMMENDATION: Follow-up low dose CT chest [address] LUNG RAD: Lung-Rad 3 Probably Benign
== END | disposition home or self-care (01) ==
LOC: RADCTMAIN 16:24
PROVIDERS: ATTEND Family Medicine
DX: Z12.2 Encounter for screening for malignant neoplasm of respiratory organs (principal); J92.9 Pleural plaque without asbestos; F17.210 Nicotine dependence, cigarettes, uncomplicated
CPT/HCPCS: 71271

== ENCOUNTER → 2023-07-23 | Outpatient (CLI) | payer MEDICARE, OTHER ==
[2023-07-23 16:17] LABS: T4, Free (Free Thyroxine) 1.1 ng/dL (0.80-1.80)
--- NOTE | 2023-07-24 18:38 | MM ---
Reason for Exam: Screening (asymptomatic). Last mammogram was performed 1 year(s) and 1 month(s) ago. Patient History: Menarche at age 14. First Full-Term at age 15. Hysterectomy at age 28. Postmenopausal. Risk Values: Jesusita 5 year model risk: 1.1%. NCI Lifetime model risk: 4.2%. Prior Study Comparison: 12/19/2020 Right Diagnostic Mammogram, [facility]. 06/26/2021 Bilateral Diagnostic Mammogram, [facility]. 06/28/2022 Bilateral MG 3D screening mammo w/cad, [facility]. Tissue Density: The breast tissue is heterogeneously dense. This may lower the sensitivity of mammography. Findings: Analyzed By CAD. Pattern appears stable. Chronic nodularity is within the right breast. There is a high density area within the right breast which may be somewhat more prominent than the comparison study. This measures 0.5 cm in the upper outer quadrant middle breast 5 cm in the nipple. Additional workup is recommended. Ultrasound may be required to complete the workup. Left breast: No suspicious groups of microcalcifications, spiculated or lobular masses, architectural distortion or other secondary signs of malignancy are mammographically apparent. Overall Assessment: Incomplete: need additional imaging evaluation, BI-RAD 0 Management: Diagnostic Mammogram of the right breast. Diagnostic Breast Ultrasound of the right breast. A negative mammogram report should not preclude additional follow up of suspicious palpable abnormalities. Patient should continue monthly self breast exam. A clinical breast exam by your physician is recommended on an annual basis and results should be correlated with mammographic findings. Electronically signed and approved by: Reji Singh D.O. Radiologis
--- NOTE | 2023-07-24 19:21 | BD ---
EXAMINATION TYPE: Axial Bone Density DATE OF EXAM: 07/23/2023 CLINICAL HISTORY: 63 years old Female. ICD-10 CODE: Z12.31 SCREENING MAMMOGRAM Z78.0 Height: 67" Weight: 116lbs FRAX RISK QUESTIONS: Alcohol (3 or more units per day): No Family History (Parent hip fracture): No Glucocorticoids (More than 3mos): No (Ex: prednisone, prednisolone, methylprednisolone, dexamethasone, and hydrocortisone). History of Fracture in Adulthood: Yes, ankle Secondary Osteoporosis: 1. Type 1 Diabetes: No 2. Hyperthyroidism: No 3. Menopause before 45: No 4. Malnutrition: No 5. Chronic liver disease: No Rheumatoid Arthritis: No Current Tobacco Use: Yes RISK FACTORS HISTORY OF: Hip Fracture (Right/Left): No Spine Fracture: No History of Wrist Fracture: No Surgery to Spine/Hip(right/left)/Wrist (right/left): No Family History of Osteoporosis: No Active: Yes Diet low in dairy products/other sources of calcium: No Postmenopausal woman: Yes Lost more than 2 inches in height since high school: No Frequent falls: No Poor Health: No Hyperparathyroidism: No Adrenal Insufficiency: No MEDICATIONS: Prednisone or other steroids: No Thyroid Medications: Yes Which medication: Unknown medication How Long: About 4 years Osteoporosis Medications: No Additional Medications: Sleeping pill, thyroid medication, heart medication (unknown) Additional History: COPD EXAM MEASUREMENTS: Bone mineral densitometry was performed using the [employer] System. Bone mineral density as measured about the Lumbar spine is: ----- L1-L4(G/cm2): 10.31 T Score Values are as follows: ----- L1: -1.3 ----- L2: -1.6 ----- L3: -0.9 ----- L4: -1.3 ----- L1-L4: -1.2 Z Score Values are as follows: ----- L1: 0.7 ----- L2: 0.4 ----- L3: 1.1 ----- L4: 0.7 ----- L1-L4: 0.8 Bone mineral density has: decreased -1.7% since study of: 06/13/2020 Bone mineral density about the R hip (g/cm2): 0.766 Bone mineral density about the L hip (g/cm2): 0.757 T Score values are as follows: -----R Neck: -1.4 -----L Neck: -1.2 -----R Total: -1.9 -----L Total: -2.0 Z Score values are as follows: -----R Neck: 0.3 -----L Neck: 0.5 -----R Total: -0.4 -----L Total: -0.5 Bone mineral density has: decreased -0.4% since study of: 06/13/2020 FRAX%s: The graph provided illustrates a 7.3% chance for a major osteoporotic fx and a 1.4% chance fo r the hips probability for fx in 10 years time. IMPRESSION: Osteopenia (T Score between -2.5 and -1). There is slightly increased risk of fracture and the patient may be considered for treatment. Re-Screen 2-5 years. NOTE: T-SCORE=SD OF THE YOUNG ADULT MEAN.
== END | disposition home or self-care (01) ==
LOC: RADMAMWWP 10:29
PROVIDERS: ATTEND Family Medicine
DX: Z12.31 Encounter for screening mammogram for malignant neoplasm of breast (principal); E05.90 Thyrotoxicosis, unspecified without thyrotoxic crisis or storm; M85.89 Other specified disorders of bone density and structure, multiple sites; Z78.0 Asymptomatic menopausal state; Z72.0 Tobacco use
CPT/HCPCS: 77067; 77080; 84439; 84443; 84481

== ENCOUNTER → 2023-08-07 | Outpatient (CLI) | payer MEDICARE, OTHER ==
--- NOTE | 2023-08-07 09:00 | MM ---
Reason for Exam: Additional evaluation requested from abnormal screening. Last screening mammogram was performed less than 1 month ago. Patient History: Menarche at age 14. First Full-Term at age 15. Hysterectomy at age 28. Postmenopausal. Risk Values: Jesusita 5 year model risk: 1.1%. NCI Lifetime model risk: 4.2%. Prior Study Comparison: 03/20/2018 Bilateral Screening Mammogram, [facility]. 06/13/2020 Bilateral Screening Mammogram, [facility]. 06/21/2020 Right Diagnostic Mammogram, [facility]. 12/19/2020 Right Diagnostic Mammogram, [facility]. 06/26/2021 Bilateral Diagnostic Mammogram, [facility]. 06/28/2022 Bilateral MG 3D screening mammo w/cad, [facility]. 07/23/2023 Bilateral MG screening mammo w CAD, [facility]. Tissue Density: Right: The breast tissue is heterogeneously dense. This may lower the sensitivity of mammography. Findings: Analyzed By CAD. Persistent 9 mm isodense partially obscured mass within the outer lower right breast at middle depth. No suspicious group of microcalcifications. Overall Assessment: Incomplete: need additional imaging evaluation, BI-RAD 0 Management: Diagnostic Breast Ultrasound of the right breast. A clinical breast exam by your physician is recommended on an annual basis and results should be correlated with mammographic findings. This exam should not preclude additional follow-up of suspicious palpable abnormalities. Results were given to the patient verbally at the time of exam. Note on Jesusita scores and lifetime risk: 1. A Jesusita score greater than 3% is considered moderate risk. If this is the case, consider specialist referral to assess eligibility for a risk reducing agent. If overall lifetime risk for the development of breast cancer is 20% or higher, the patient may qualify for future screening with alternating mammogram and breast MRI. Electronically signed and approved by: Christopher Flores D.O.
--- NOTE | 2023-08-07 09:25 | USB ---
Reason for Exam: Additional evaluation requested from abnormal screening. Patient History: Menarche at age 14. First Full-Term at age 15. Hysterectomy at age 28. Postmenopausal. Risk Values: Jesusita 5 year model risk: 1.1%. NCI Lifetime model risk: 4.2%. Technique: Method: Targeted. Prior Study Comparison: 06/26/2021 Bilateral Diagnostic Mammogram, [facility]. 06/28/2022 Bilateral MG 3D screening mammo w/cad, [facility]. 07/23/2023 Bilateral MG screening mammo w CAD, [facility]. Findings: The lower outer quadrant of the right breast, the axilla of the right breast and the retroareolar of the right breast were scanned. Targeted ultrasound of right breast from 6-9 o'clock was performed with additional evaluation of the nipple and axillary tail. Stable cluster of cysts with thin septations in the right breast 8:00 for social and nipple measuring 0.7 x 0.4 x 0.7 cm. There is posterior acoustic enhancement. Previously measured 0.8 x 0.6 x 0.7 cm. Overall Assessment: Benign, BI-RAD 2 Management: Screening Mammogram of both breasts in 1 year. A clinical breast exam by your physician is recommended on an annual basis and results should be correlated with mammographic findings. This exam should not preclude additional follow-up of suspicious palpable abnormalities. Results were given to the patient verbally at the time of exam. Electronically signed and approved by: Christopher Flores D.O.
== END | disposition home or self-care (01) ==
LOC: RADMAMWWP 08:28
PROVIDERS: ATTEND Family Medicine
DX: R92.8 Other abnormal and inconclusive findings on diagnostic imaging of breast (principal); Z78.0 Asymptomatic menopausal state
CPT/HCPCS: 77065; 76642; G0279; 77061

== ENCOUNTER 2023-10-04 20:00 | Emergency (ER) | payer MEDICARE, OTHER ==
[2023-10-04 21:00] VITALS: TEMP 98.9
[2023-10-04 21:08] LABS: ALT 17 U/L (4-34); AST 22 U/L (14-36); African American GFR (CKD) >90 (>60 ml/min/1.73 sqM); Albumin 3.5 g/dL (3.5-5.0); Alkaline Phosphatase 114 U/L (38-126); Anion Gap 10 mmol/L; Basophils % (A) 0 %; Blood Urea Nitrogen 12 mg/dL (7-17); Calcium 8.8 mg/dL (8.4-10.2); Carbon Dioxide 27 mmol/L (22-30); Chloride 98 mmol/L (98-107); Eosinophils # (A) 0.1 k/uL (0-0.7); Eosinophils % (A) 1 %; Glucose 128 mg/dL (74-99); HCT 39.1 % (34.0-46.0); HGB 13.3 gm/dL (11.4-16.0); Lymphocytes # (A) 1.5 k/uL (1.0-4.8); Lymphocytes % (A) 15 %; MCHC 34.1 g/dL (31.0-37.0); MCV 88.1 fL (80.0-100.0); Magnesium 1.8 mg/dL (1.6-2.3); Mean Platelet Volume 8.1; Monocytes # (A) 1.4 k/uL (0-1.0); Monocytes % (A) 15 %; Neutrophils # (A) 6.3 k/uL (1.3-7.7); Neutrophils % (A) 66 %; Non-African American GFR(CKD) >90 (>60 ml/min/1.73 sqM); Platelet Count 243 k/uL (150-450); Potassium 3.6 mmol/L (3.5-5.1); RBC 4.44 m/uL (3.80-5.40); RDW 12.4 % (11.5-15.5); Sodium 135 mmol/L (137-145); Total Bilirubin 0.8 mg/dL (0.2-1.3); Total Protein 6.2 g/dL (6.3-8.2); WBC 9.7 k/uL (3.8-10.6)
[2023-10-04 21:18] LABS: INR 0.9 (<1.2); Partial Thromboplastin Time 25.3 sec (22.0-30.0); Prothrombin Time 10.4 sec (10.0-12.5)
--- NOTE | 2023-10-04 21:29 | XR ---
EXAMINATION TYPE: XR chest 2V DATE OF EXAM: 10/04/2023 COMPARISON: 01/16/2023 INDICATION: Chest pain left side TECHNIQUE: Frontal and lateral views of the chest are obtained. FINDINGS: The heart size is normal. The pulmonary vasculature is normal. The lungs are clear. IMPRESSION: 1. No acute pulmonary process.
--- NOTE | 2023-10-04 22:44 | ED ---
Chest Pain HPI - General Source: patient Mode of arrival: ambulatory Limitations: no limitations <Stuart Saavedra - Last Filed: 10/04/23 22:44> <Grady Parham - Last Filed: 10/05/23 02:29> - General Chief Complaint: Chest Pain Stated Complaint: Chest Pain Time Seen by Provider: 10/04/23 22:44 - History of Present Illness Initial Comments: 63-year-old female presenting to the ED with a chief complaint of chest pain. Patient states that since Saturday she's had some left chest pain. States pain is worse when she coughs. Patient also notes some sore throat and cough with this. (Stuart Saavedra) Dictation was produced using [email or web address] dictation software. please excuse any grammatical, word or spelling errors. Chief Complaint: 63-year-old female presents with sore throat cough and pleurisy History of Present Illness: Patient 63-year-old female she has past medical history of tobacco abuse. She smokes regularly. States her last one-two days she's developed sore throat, nasal congestion and pleuritic chest pain to the left side. States sharp worse coughs or takes a breath. No shortness of breath. Denies any fever constitutional symptoms. No obvious sick contacts. The ROS documented in this emergency department record has been reviewed and confirmed by me. Those systems with pertinent positive or negative responses have been documented in the HPI. All other systems are other negative and/or noncontributory. (Grady Parham) - Related Data Home Medications Medication Instructions Recorded Confirmed Ibuprofen 800 mg PO TID PRN 03/12/18 06/20/22 Zolpidem Tartrate [Ambien] 10 mg PO HS 03/12/18 06/20/22 methIMAzole [Tapazole] 5 mg PO DAILY 06/16/18 06/20/22 Albuterol Inhaler [Ventolin Hfa 1 - 2 puff INHALATION BID 06/19/22 06/20/22 Inhaler] Atorvastatin [Lipitor] 20 mg PO DAILY 06/19/22 06/20/22 Allergies Allergy/AdvReac Type Severity Reaction Status Date / Time No Known Allergies Allergy Verified 10/04/23 20:43 Review of Systems ROS Other: All systems not noted in ROS Statement are negative. <Stuart Saavedra - Last Filed: 10/04/23 22:44> ROS Other: All systems not noted in ROS Statement are negative. <Grady Parham - Last Filed: 10/05/23 02:29> ROS Statement: Those systems with pertinent positive or pertinent negative responses have been documented in the HPI. Past Medical History Past Medical History: Cancer, COPD, Hyperlipidemia, Thyroid Disorder Additional Past Medical History / Comment(s): hx. colon polyps, occas difficulty swallowing w/pills, migraines, hx. skin cancer, chronic cough from smoking per pt. History of Any Multi-Drug Resistant Organisms: None Reported Past Surgical History: Tubal Ligation Additional Past Surgical History / Comment(s): colonoscopy Past Anesthesia/Blood Transfusion Reactions: No Reported Reaction Past Psychological History: No Psychological Hx Reported Smoking Status: Current every day smoker Past Alcohol Use History: None Reported Past Drug Use History: None Reported - Past Family History Sister(s) Family Medical History: Cancer <QuentinStuart - Last Filed: 10/04/23 22:44> General Exam Limitations: no limitations General appearance: alert, in no apparent distress Neck exam: Present: normal inspection Extremities exam: Present: normal inspection Back exam: Present: normal inspection Neurological exam: Present: alert <Stuart Saavedra - Last Filed: 10/04/23 22:44> <Grady Parham - Last Filed: 10/05/23 02:29> - General Exam Comments Initial Comments: PHYSICAL EXAM: General Impression: Alert and oriented x3, not in acute distress HEENT: Normocephalic atraumatic, extra-ocular movements intact, pupils equal and reactive to light bilaterally, mucous membranes moist. Cardiovascular: Heart regular rate and rhythm Chest: Able to complete full sentences, no retractions, no tachypnea Abdomen: abdomen soft, non-tender, non-distended, no organomegaly Musculoskeletal: Pulses present and equal in all extremities, no peripheral edema Motor: no focal deficits noted Neurological: CN II-XII grossly intact, no focal motor or sensory deficits noted Skin: Intact with no visualized rashes Psych: Normal affect and mood (Grady Parham) Course Vital Signs 10/04/23 10/04/23 10/04/23 20:41 23:50 23:55 Temperature 98.9 F Pulse Rate 115 H 108 H 107 H Respiratory 20 19 19 Rate Blood Pressure 134/84 121/95 121/95 Blood Pressure [Right Arm] O2 Sat by Pulse 94 L 93 L 94 L Oximetry 10/04/23 10/04/23 10/05/23 23:56 23:59 00:00 Temperature Pulse Rate 109 H Respiratory 19 19 20 Rate Blood Pressure 121/95 Blood Pressure 121/95 [Right Arm] O2 Sat by Pulse 93 L 93 L Oximetry 10/05/23 10/05/23 00:30 01:00 Temperature Pulse Rate 111 H 109 H Respiratory 19 20 Rate Blood Pressure 152/87 152/87 Blood Pressure [Right Arm] O2 Sat by Pulse 88 L 90 L Oximetry Chest Pain MDM <Stuart Saavedra - Last Filed: 10/04/23 22:44> <Grady Parham - Last Filed: 10/05/23 02:29> - MDM Quicknote portion performed. Signed Stuart Saavedra PA-C (Stuart Saavedra) My EKG interpretation: Ventricular rate 116, sinus tachycardia, FL interval 181, QRS 90, QTC 334. No FL prolongation, no QTC prolongation, no ST or T-wave changes noted. Overall, this EKG is unremarkable Was pt. sent in by a medical professional or institution (VIOLETTE Holbrook, TRACTOR MECHANIC APPRENTICE, urgent care, hospital, or jail...) When possible be specific @ -No Did you speak to anyone other than the patient for history (EMS, parent, family, police, friend...)? What history was obtained from this source @ -No Did you review nursing and triage notes (agree or disagree)? Why? @ -I reviewed and agree with nursing and triage notes Were old charts reviewed (outside hosp., previous admission, EMS record, old EKG, old radiological studies, urgent care reports/EKG's, jail records)? Report findings @ -No old charts were reviewed Differential Diagnosis (chest pain, altered mental status, abdominal pain women, abdominal pain men, vaginal bleeding, musculoskeletal, weakness, fever, dyspnea, syncope, headache, dizziness, GI bleed, back pain, seizure, CVA, palpatations, mental health)? @ -Differential Chest Pain: Stable Angina, Unstable Angina, STEMI, NSTEMI Aortic Dissection, Pneumothorax, Musculoskeletal, Esophageal Spasm GERD, Cholecystitis, Pancreatitis, Zoster, this is not meant to be an all-inclusive list. EKG interpreted by me (3pts min.). @ -See above X-rays interpreted by me (1pt min.). @ -Chest x-ray shows no acute processes. CT interpreted by me (1pt min.). @ -None done U/S interpreted by me (1pt. min.). @ -None done What testing was considered but not performed or refused? (CT, X-rays, U/S, labs)? Why? @ -None What meds were considered but not given or refused? Why? @ -None Did you discuss the management of the patient with other professionals (professionals i.e. , PA, TRACTOR MECHANIC APPRENTICE, lab, RT, psych nurse, hospice social worker, workforce analyst, teacher, bank secrecy act officer, registered nurse hh case manager)? Give summary @ -No Was smoking cessation discussed for >3mins.? @ -No Was critical care preformed (if so, how long)? @ -No Were there social determinants of health that impacted care today? How? (Homelessness, low income, unemployed, alcoholism, drug addiction, transportation, low edu. Level, literacy, decrease access to med. care, fpc, rehab)? @ -No Was there de-escalation of care discussed even if they declined (Discuss DNR or withdrawal of care, Hospice)? DNR status @ -No What co-morbidities impacted this encounter? (DM, HTN, Smoking, COPD, CAD, Cancer, CVA, ARF, Chemo, Hep., AIDS, mental health diagnosis, sleep apnea, morbid obesity)? @ -None Was patient admitted / discharged? Hospital course, mention meds given and route, prescriptions, significant lab abnormalities, going to OR and other pertinent info. @ -63-year-old female presents to emergency department with atypical chest pain. Vital signs upon arrival was tachycardic. Patient systole tachycardic. However she is well-appearing. Laboratory evaluation obtained. CBC, coag panel metabolic panel is unremarkable. Troponin is negative. While testing is negative. She signed out AGAINST MEDICAL ADVICE. Patient persistently tachycardic d-dimer resulted after she left AMA. Attempt is made to notify patient that she should return to the ER for further testing. Undiagnosed new problem with uncertain prognosis? @ -No Drug Therapy requiring intensive monitoring for toxicity (Heparin, Nitro, Insulin, Cardizem)? @ -No Were any procedures done? @ -No Diagnosis/symptom? Acute, or Chronic, or Acute on Chronic? Uncomplicated (without systemic symptoms) or Complicated (systemic symptoms)? @ -Chest pain, tachycardia Side effects of treatment? @ -No Exacerbation, Progression, or Severe Exacerbation? @ -No Poses a threat to life or bodily function? How? (Chest pain, [place], [place], pneumonia, PE, COPD, DKA, ARF, appy, cholecystitis, CVA, Diverticulitis, Homicidal, Suicidal, threat to staff... and all critical care pts) @ -yes (Grady Parham) Disposition <Stuart Saavedra - Last Filed: 10/04/23 22:44> Is patient prescribed a controlled substance at d/c from ED?: No Time of Disposition: 02:29 <Grady Parham - Last Filed: 10/05/23 02:29> Clinical Impression: Chest pain Disposition: LEFT AGAINST MEDICAL ADVICE Condition: Fair Instructions (If sedation given, give patient instructions): Chest Pain (ED) Referrals: Toy Chan MD [Primary Care Provider] - 1-2 days
[2023-10-05 01:19] VITALS: BP 152/87; PULSE 109; RESP 20
== END 2023-10-05 01:50 | disposition left against medical advice (07) ==
LOC: EC 20:00
DX: R07.89 Other chest pain (principal); R00.0 Tachycardia, unspecified; J44.9 Chronic obstructive pulmonary disease, unspecified; E78.5 Hyperlipidemia, unspecified; F17.200 Nicotine dependence, unspecified, uncomplicated; Z79.899 Other long term (current) drug therapy; Z53.29 Procedure and treatment not carried out because of patient's decision for other reasons; Z20.822 Contact with and (suspected) exposure to COVID-19
CPT/HCPCS: 36415; 71046; 80053; 83735; 84484; 85025; 85379; 85610; 85730; 87636; 93005; 99285

== ENCOUNTER 2023-10-05 03:42 | Emergency (ER) | payer MEDICARE, OTHER ==
[2023-10-05 04:32] VITALS: TEMP 99.2
--- NOTE | 2023-10-05 05:01 | ED ---
General Adult HPI - General Source: patient Mode of arrival: wheelchair Limitations: no limitations <Grady Parham - Last Filed: 10/05/23 06:55> <Leonel Mar - Last Filed: 10/05/23 08:18> - General Chief complaint: Recheck/Abnormal Lab/Rx Stated complaint: Blood Clot Time Seen by Provider: 10/05/23 04:20 - History of Present Illness Initial comments: Dictation was produced using [employer] dictation software. please excuse any grammatical, word or spelling errors. Chief Complaint: 63-year-old female left AMA earlier today presents emergency department for elevated d-dimer History of Present Illness: 63-year-old female presents emergency department after leaving the emergency department earlier for elevated d-dimer. Patient has pleuritic chest pain. Please see most recent ER note from today for more detailed description of patient's symptoms. She left AMA and was called told to return to the emergency department for concerns of possible PE. Patient's symptoms remain unchanged since earlier. The ROS documented in this emergency department record has been reviewed and confirmed by me. Those systems with pertinent positive or negative responses have been documented in the HPI. All other systems are other negative and/or noncontributory. (Grady Parham) - Related Data Home Medications Medication Instructions Recorded Confirmed Ibuprofen 800 mg PO TID PRN 03/12/18 06/20/22 Zolpidem Tartrate [Ambien] 10 mg PO HS 03/12/18 06/20/22 methIMAzole [Tapazole] 5 mg PO DAILY 06/16/18 06/20/22 Albuterol Inhaler [Ventolin Hfa 1 - 2 puff INHALATION BID 06/19/22 06/20/22 Inhaler] Atorvastatin [Lipitor] 20 mg PO DAILY 06/19/22 06/20/22 Allergies Allergy/AdvReac Type Severity Reaction Status Date / Time No Known Allergies Allergy Verified 10/05/23 04:19 Review of Systems ROS Other: All systems not noted in ROS Statement are negative. <Grady Parham - Last Filed: 10/05/23 06:55> ROS Other: All systems not noted in ROS Statement are negative. <Leonel Mar - Last Filed: 10/05/23 08:18> ROS Statement: Those systems with pertinent positive or pertinent negative responses have been documented in the HPI. Past Medical History Past Medical History: Cancer, COPD, Hyperlipidemia, Thyroid Disorder Additional Past Medical History / Comment(s): hx. colon polyps, occas difficulty swallowing w/pills, migraines, hx. skin cancer, chronic cough from smoking per pt. History of Any Multi-Drug Resistant Organisms: None Reported Past Surgical History: Tubal Ligation Additional Past Surgical History / Comment(s): colonoscopy Past Anesthesia/Blood Transfusion Reactions: No Reported Reaction Past Psychological History: No Psychological Hx Reported Smoking Status: Current every day smoker Past Alcohol Use History: None Reported Past Drug Use History: None Reported - Past Family History Sister(s) Family Medical History: Cancer <Grady Parham - Last Filed: 10/05/23 06:55> General Exam Limitations: no limitations <Grady Parham - Last Filed: 10/05/23 06:55> - General Exam Comments Initial Comments: PHYSICAL EXAM: General Impression: Alert and oriented x3, not in acute distress HEENT: Normocephalic atraumatic, extra-ocular movements intact, pupils equal and reactive to light bilaterally, mucous membranes moist. Cardiovascular: Heart regular rate and rhythm Chest: Able to complete full sentences, no retractions, no tachypnea Abdomen: abdomen soft, non-tender, non-distended, no organomegaly Musculoskeletal: Pulses present and equal in all extremities, no peripheral edema Motor: no focal deficits noted Neurological: CN II-XII grossly intact, no focal motor or sensory deficits noted Skin: Intact with no visualized rashes Psych: Normal affect and mood (Grady Parham) Course Vital Signs 10/05/23 04:17 Temperature 99.2 F Pulse Rate 106 H Respiratory 20 Rate Blood Pressure 106/68 O2 Sat by Pulse 93 L Oximetry Medical Decision Making <Grady Parham - Last Filed: 10/05/23 06:55> <Leonel Mar - Last Filed: 10/05/23 08:18> - Medical Decision Making Was pt. sent in by a medical professional or institution (, PA, LOAD HAUL DUMP OPERATOR, urgent care, hospital, or senior care...) When possible be specific @ -No Did you speak to anyone other than the patient for history (EMS, parent, family, police, friend...)? What history was obtained from this source @ -No Did you review nursing and triage notes (agree or disagree)? Why? @ -I reviewed and agree with nursing and triage notes Were old charts reviewed (outside hosp., previous admission, EMS record, old EKG, old radiological studies, urgent care reports/EKG's, senior care records)? Report findings @ -No old charts were reviewed Differential Diagnosis (chest pain, altered mental status, abdominal pain women, abdominal pain men, vaginal bleeding, musculoskeletal, weakness, fever, dyspnea, syncope, headache, dizziness, GI bleed, back pain, seizure, CVA, palpatations, mental health)? @ -Differential Chest Pain: Stable Angina, Unstable Angina, STEMI, NSTEMI Aortic Dissection, Pneumothorax, Musculoskeletal, Esophageal Spasm GERD, Cholecystitis, Pancreatitis, Zoster, this is not meant to be an all-inclusive list. EKG interpreted by me (3pts min.). @ -None done X-rays interpreted by me (1pt min.). @ -None done CT interpreted by me (1pt min.). @ -No saddle emboli on CT angiography of the chest U/S interpreted by me (1pt. min.). @ -None done What testing was considered but not performed or refused? (CT, X-rays, U/S, labs)? Why? @ -None What meds were considered but not given or refused? Why? @ -None Did you discuss the management of the patient with other professionals (professionals i.e. , PA, LOAD HAUL DUMP OPERATOR, lab, RT, psych nurse, social media job titles, clay processing labourer, teacher, air defense control officer, heel caser)? Give summary @ -No Was smoking cessation discussed for >3mins.? @ -No Was critical care preformed (if so, how long)? @ -No Were there social determinants of health that impacted care today? How? (Homelessness, low income, unemployed, alcoholism, drug addiction, transportation, low edu. Level, literacy, decrease access to med. care, group home, rehab)? @ -No Was there de-escalation of care discussed even if they declined (Discuss DNR or withdrawal of care, Hospice)? DNR status @ -No What co-morbidities impacted this encounter? (DM, HTN, Smoking, COPD, CAD, Cancer, CVA, ARF, Chemo, Hep., AIDS, mental health diagnosis, sleep apnea, morbid obesity)? @ -None Was patient admitted / discharged? Hospital course, mention meds given and route, prescriptions, significant lab abnormalities, going to OR and other pertinent info. @ -63 Year-old female encouraged to come back to the emergency department due to positive elevated d-dimer. She left AMA during the previous visit. She was told that her d-dimer is elevated she should return to the ER for CT angiography. Patient continues to be tachycardic with a rate of 106. Denies any shortness of breath or she does have pleuritic chest pain. CT angiography does not show any saddle emboli. Pending final radiology read. Patient's signout to Dr. Mar at 7 AM Undiagnosed new problem with uncertain prognosis? @ -No Drug Therapy requiring intensive monitoring for toxicity (Heparin, Nitro, Insulin, Cardizem)? @ -No Were any procedures done? @ -No Diagnosis/symptom? Acute, or Chronic, or Acute on Chronic? Uncomplicated (without systemic symptoms) or Complicated (systemic symptoms)? @ -Pleurisy Side effects of treatment? @ -No Exacerbation, Progression, or Severe Exacerbation? @ -No Poses a threat to life or bodily function? How? (Chest pain, [place], [place], pneumonia, PE, COPD, DKA, ARF, appy, cholecystitis, CVA, Diverticulitis, Homicidal, Suicidal, threat to staff... and all critical care pts) @ -yes (Grady Parham) Patient's CT of the chest showed no PE there was a nodule admitted the patient where that there was a small nodule on the x-ray and she needs to follow that up with her primary medical care doctor. (Leonel Mar) Disposition <Grady Parham - Last Filed: 10/05/23 06:55> Is patient prescribed a controlled substance at d/c from ED?: No Time of Disposition: 08:17 <Leonel Mar - Last Filed: 10/05/23 08:18> Clinical Impression: Pleurisy Disposition: HOME SELF-CARE Condition: Good Instructions (If sedation given, give patient instructions): Pleurisy (ED) Referrals: Toy Chan MD [Primary Care Provider] - 1-2 days
--- NOTE | 2023-10-05 07:56 | CT ---
CT CHEST FOR PULMONARY EMBOLISM. EXAMINATION TYPE: CT angio chest DATE OF EXAM: 10/05/2023 INDICATION: Positive d-dimer CT DLP: 201.8 mGycm, Automated exposure control for dose reduction was used. CONTRAST: Patient injected with 100 mL of Isovue 300. COMPARISON: None TECHNIQUE: CT of the chest is performed on a spiral scan at 2 mm thick sections. Study is performed with intravenous contrast timed for evaluation for pulmonary embolism. This will limit additional po rtions of the evaluation. 3-D MIP images reconstructed by the technologist are reviewed on the compu ter in the coronal and sagittal planes. FINDINGS: No persistent filling defects are evident to suggest an acute pulmonary embolism. No mediastinal or hilar adenopathy enlarged by CT criteria is evident. The ascending aorta diameter at the level of the main pulmonary artery is 3.2 cm. The main pulmonary artery diameter at the bifur cation is 2.6 cm. There is a 0.4 cm density in the periphery of the anterior lateral right lung base. Limited CT section through the upper abdomen are unremarkable. Portion of the thyroid as visualized a ppears mildly prominent. Calcified hypodensity within the inferior left lobe thyroid. IMPRESSION: 1. No acute pulmonary embolism. 2. 0.4 cm density right lung base. Follow-up CT chest in 6 months is recommended.
[2023-10-05 08:36] VITALS: BP 124/72; PULSE 78; RESP 18
== END 2023-10-05 08:34 | disposition home or self-care (01) ==
LOC: EC 03:42
DX: R09.1 Pleurisy (principal); R91.1 Solitary pulmonary nodule; R79.89 Other specified abnormal findings of blood chemistry; J44.9 Chronic obstructive pulmonary disease, unspecified; E78.5 Hyperlipidemia, unspecified; F17.200 Nicotine dependence, unspecified, uncomplicated; Z79.899 Other long term (current) drug therapy
CPT/HCPCS: 71275; 99284; Q9967

== ENCOUNTER → 2023-11-15 | Outpatient (CLI) | payer MEDICARE, OTHER ==
[2023-11-15 15:56] LABS: African American GFR (CKD) >90 (>60 ml/min/1.73 sqM); Blood Urea Nitrogen 16 mg/dL (7-17); Non-African American GFR(CKD) >90 (>60 ml/min/1.73 sqM)
--- NOTE | 2023-11-17 11:46 | CT ---
CT CHEST FOR PULMONARY EMBOLISM. EXAMINATION TYPE: CT angio chest DATE OF EXAM: 11/15/2023 INDICATION: Chest pain x months CT DLP: 325.3 mGycm, Automated exposure control for dose reduction was used. CONTRAST: Patient injected with 100 cc mL of Isovue 370. COMPARISON: 10/05/2023 TECHNIQUE: CT of the chest is performed on a spiral scan at 2 mm thick sections. Study is performed with intravenous contrast timed for evaluation for pulmonary embolism. This will limit additional po rtions of the evaluation. FINDINGS: No persistent filling defects are evident to suggest an acute pulmonary embolism. No mediastinal or hilar adenopathy enlarged by CT criteria is evident. The ascending aorta diameter at the level of the main pulmonary artery is 3.2 cm. The main pulmonary artery diameter at the bifur cation is 2.3 cm. The anterior lateral right lung base density appears less prominent currently measuring 0.3 cm in wid th. No new nodules or densities are evident. Extensive emphysematous changes are present. Limited CT section through the upper abdomen are unremarkable. Thyroid [id number] has a calcified hypodensity within the left thyroid lobe. There is a 1.6 cm cyst on the posterior lateral left mid ki dney. IMPRESSION: 1. Small density right anterior lateral peripheral lung base appears slightly smaller than comparison . If this patient is at high risk for lung neoplasm, follow-up exam can be performed in 12 months pe r Fleischner criteria.
== END | disposition home or self-care (01) ==
LOC: RADCTMAIN 15:12
PROVIDERS: ATTEND Family Medicine
DX: J98.4 Other disorders of lung (principal); R91.8 Other nonspecific abnormal finding of lung field
CPT/HCPCS: 82565; 84520; 71275; 36415; Q9967

== ENCOUNTER → 2024-02-25 | Outpatient (CLI) | payer MEDICARE ==
[2024-02-25 11:29] LABS: INR 0.9 (<1.2); Partial Thromboplastin Time 24.2 sec (22.0-30.0); Prothrombin Time 10.4 sec (10.0-12.5)
[2024-02-25 15:54] LABS: Basophils # (A) 0.03 X 10*3/uL (0.00-0.10); Basophils % (A) 0.5 %; Eosinophils # (A) 0.22 X 10*3/uL (0.04-0.35); Eosinophils % (A) 3.6 %; HCT 42.9 % (37.2-46.3); HGB 13.8 g/dL (12.0-15.0); Lymphocytes # (A) 1.79 X 10*3/uL (0.90-5.00); Lymphocytes % (A) 29.6 %; MCH 29.2 pg (27.0-32.0); MCHC 32.2 g/dL (32.0-37.0); MCV 90.9 FL (80.0-97.0); Mean Platelet Volume 10.1 FL (9.5-12.2); Monocytes % (A) 11.6 %; NRBC Per 100 WBC 0 X 10*3/uL (0.00-0.01); Neutrophils % (A) 54.5 %; Platelet Count 247 X 10*3/uL (140-440); RBC 4.72 X 10*6/uL (4.10-5.20); RDW 11.5 % (11.5-14.5); WBC 6.05 X 10*3/uL (4.50-10.00)
[2024-02-25 16:29] LABS: ALT 16 U/L (8-44); AST 19 U/L (13-35); Albumin/Globulin Ratio 1.82 Ratio (1.60-3.17); Alkaline Phosphatase 114 U/L (41-126); BUN/Creat Ratio 21.17 Ratio (12.00-20.00); Blood Urea Nitrogen 12.7 mg/dL (9.0-27.0); Calcium 9.5 mg/dL (8.7-10.3); Carbon Dioxide 29.6 mmol/L (21.6-31.8); Chloride 103 mmol/L (96-109); Chol/HDL Ratio 2.22 Ratio; Globulin 2.2 g/dL (1.6-3.3); Glucose 93 mg/dL (70-110); LDL Cholesterol,Calculated 64.2 mg/dL (0.0-131.0); Potassium 4.4 mmol/L (3.5-5.5); Sodium 142 mmol/L (135-145); Total Bilirubin 0.4 mg/dL (0.3-1.2); Total Protein 6.2 g/dL (6.2-8.2)
== END | disposition home or self-care (01) ==
LOC: LABWHC1 10:24
PROVIDERS: ATTEND Family Medicine
DX: E78.5 Hyperlipidemia, unspecified (principal); E05.90 Thyrotoxicosis, unspecified without thyrotoxic crisis or storm; R22.1 Localized swelling, mass and lump, neck
CPT/HCPCS: 36415; 80053; 80061; 84439; 84443; 85025; 85610; 85730

== ENCOUNTER → 2024-08-07 | Outpatient (CLI) | payer MEDICARE ==
--- NOTE | 2024-08-10 14:36 | MM ---
Reason for Exam: Screening (asymptomatic). Last mammogram was performed 1 year(s) and 1 month(s) ago. Patient History: Menarche at age 14. First Full-Term at age 15. Hysterectomy at age 28. Postmenopausal. Risk Values: Jesusita 5 year model risk: 1.1%. NCI Lifetime model risk: 4.0%. Prior Study Comparison: 06/28/2022 Bilateral MG 3D screening mammo w/cad, [facility]. 07/23/2023 Bilateral MG screening mammo w CAD, [facility]. 08/07/2023 Right MG 3D work up w/cad [facility], [facility]. Tissue Density: The breasts are heterogeneously dense, which may obscure small masses. Findings: Analyzed By CAD. There is no suspicious group of microcalcifications or new suspicious mass in either breast. Chronic nodule right breast. Overall Assessment: Benign, BI-RAD 2 Management: Screening Mammogram of both breasts in 1 year. . Patient should continue monthly self-breast exams. A clinical breast exam by your physician is recommended on an annual basis. This exam should not preclude additional follow-up of suspicious palpable abnormalities. Note on Jesusita scores and lifetime risk: 1. A Jesusita score greater than 3% is considered moderate risk. If this is the case, consider specialist referral to assess eligibility for a risk reducing agent. 2. If overall lifetime risk for the development of breast cancer is 20% or higher, the patient may qualify for future screening with alternating mammogram and breast MRI. [facility], , 08/10/2024 2:33 PM. Electronically signed and approved by: Beltran Lopez M.D. Radiologis
== END | disposition home or self-care (01) ==
LOC: RADMAMWWP 10:18
PROVIDERS: ATTEND Family Medicine
DX: Z12.31 Encounter for screening mammogram for malignant neoplasm of breast
CPT/HCPCS: 77067